=== PATIENT | female | born 1950 | race Caucasian/White ===

== ENCOUNTER → 2018-02-02 08:43 | Outpatient (CLI) | payer MEDICARE, OTHER, SELFPAY ==
[2018-02-02 10:45] LABS: Alanine Aminotransferase 33 IU/L (9-52); Albumin 4.2 g/dL (3.5-5.0); Albumin Globulin Ratio 1.6 (1.0-2.8); Alkaline Phosphatase 63 U/L (38-126); Aspartate Aminotransferase 32 IU/L (14-36); BUN Creatinine Ratio 27.1 (6-22); Bilirubin Total 0.6 mg/dL (0.2-1.3); Blood Urea Nitrogen 19 mg/dL (7-17); Calcium 9.7 mg/dL (8.4-10.2); Carbon Dioxide 32 mmol/L (22-32); Chloride 101 mmol/L (98-107); Cholesterol 186 mg/dL (140-199); Estimated Glomerular Filt Rate > 60.0 mL/min (>60); Globulin 2.7 g/dL (1.7-4.1); Glucose 110 mg/dL (80-110); HDL Cholesterol 64 mg/dL (40-60); HEMOLYSIS < 15 (0-50); LDL Cholesterol Calculated 108 mg/dL (<100); Potassium 4.5 mmol/L (3.4-5.1); Sodium 141 mmol/L (137-145); Total Protein 6.9 g/dL (6.3-8.2); Triglycerides 69 mg/dL (35-150)
== END ==
PROVIDERS: PCP Family Medicine; Visit Provider Family Medicine
DX: E78.5 Hyperlipidemia, unspecified (principal); R73.01 Impaired fasting glucose
CPT/HCPCS: 36415; 80053; 80061

== ENCOUNTER → 2018-04-29 11:55 | Outpatient (CLI) | payer MEDICARE, OTHER, SELFPAY ==
--- NOTE | 2018-04-29 | DI.MG.S_ITS ---
BILATERAL DIGITAL SCREENING MAMMOGRAM 3D/2D WITH CAD: 04/29/2018 CLINICAL: Routine screening. Family history of breast cancer. Comparison is made to exams dated: 04/24/2017 mammogram, 04/16/2016 mammogram, and 05/11/2014 mammogram - [facility]. The tissue of both breasts is predominantly fatty. Current study was also evaluated with a Computer Aided Detection (CAD) system. There is a focal asymmetry in the right breast at 11 o'clock middle depth. No other significant masses, calcifications, or other findings are seen in either breast. IMPRESSION: INCOMPLETE: NEEDS ADDITIONAL IMAGING EVALUATION The focal asymmetry in the right breast is indeterminate. Additional views with possible ultrasound are recommended. This exam was interpreted at Station ID: [id number]. NOTE: For mammograms, a report in lay terms will be sent to the patient. Approximately 15% of breast malignancies will not be visualized mammographically. In the management of a palpable breast mass, a negative mammogram must not discourage biopsy of a clinically suspicious lesion. Electronically Signed By: Kenyatta boyce/carmelina:04/29/2018 12:49:14 letter sent: Additional Imaging Needed ACR BI-RADS Category 0: Incomplete 3340F
== END ==
PROVIDERS: Family Provider Family Medicine; PCP Family Medicine; Visit Provider Family Medicine
DX: Z12.31 Encounter for screening mammogram for malignant neoplasm of breast (principal); Z80.3 Family history of malignant neoplasm of breast
CPT/HCPCS: 77063; 77067

== ENCOUNTER → 2018-05-25 13:15 | Outpatient (CLI) | payer MEDICARE, OTHER, SELFPAY ==
--- NOTE | 2018-05-25 13:17 | DI.MG.S_ITS ---
UNILATERAL RIGHT DIGITAL DIAGNOSTIC MAMMOGRAM 3D/2D WITH ADDITIONAL VIEWS: 05/25/2018 CLINICAL: Additional evaluation requested from prior study. Comparison is made to exams dated: 04/29/2018 mammogram, 04/24/2017 mammogram, 04/16/2016 mammogram, 05/11/2014 mammogram, 05/05/2013 mammogram, and 04/29/2012 mammogram - [facility]. There are scattered fibroglandular elements in right breast. There is an oval low density asymmetry with an indistinct margin in the right breast at 11 o'clock middle depth. This is less prominent. No other significant masses or calcifications are seen in the breast. IMPRESSION: INCOMPLETE: NEEDS ADDITIONAL IMAGING EVALUATION The oval low density asymmetry in the right breast is indeterminate. An ultrasound is recommended. This exam was interpreted at Station ID: [id number]. NOTE: For mammograms, a report in lay terms will be sent to the patient. Approximately 15% of breast malignancies will not be visualized mammographically. In the management of a palpable breast mass, a negative mammogram must not discourage biopsy of a clinically suspicious lesion. Electronically Signed By: Rodolfo helms/carmelina:05/25/2018 16:07:38 letter sent: Need Ultrasound ACR BI-RADS Category 0: Incomplete 3340F
== END ==
PROVIDERS: PCP Family Medicine; Visit Provider Family Medicine
DX: R92.8 Other abnormal and inconclusive findings on diagnostic imaging of breast (principal); N64.89 Other specified disorders of breast
CPT/HCPCS: 77065; G0279

== ENCOUNTER → 2018-05-26 14:37 | Outpatient (CLI) | payer MEDICARE, OTHER, SELFPAY ==
--- NOTE | 2018-05-26 14:39 | DI.US.S_ITS ---
ULTRASOUND OF RIGHT BREAST: 05/26/2018 CLINICAL: Patient returns for additional imaging over a suspected mass in the right breast. Comparison is made to exams dated: 05/25/2018 mammogram, 04/29/2018 mammogram, and 04/24/2017 mammogram - [facility]. Color flow and real-time ultrasound of the right breast were performed on the areas of interest. House scale images of the real-time examination were reviewed. There is 0.4 cm x 0.2 cm x 0.4 cm irregular cyst in the right breast at 10 o'clock middle depth. This irregular cyst is of mixed echogenicity. This correlates with mammography findings. IMPRESSION: PROBABLY BENIGN The 0.4 cm x 0.2 cm x 0.4 cm irregular cyst in the right breast is consistent with a complicated cyst and is probably benign. A follow-up mammogram and an ultrasound in 6 months is recommended to demonstrate stability. This exam was interpreted at Station ID: [id number]. Electronically Signed By: Kenyatta boyce/:05/26/2018 16:23:34 letter sent: Followup Recommended Ultrasound BI-RADS: 3 Probably benign
== END ==
PROVIDERS: PCP Family Medicine; Visit Provider Family Medicine
DX: R92.8 Other abnormal and inconclusive findings on diagnostic imaging of breast (principal); N60.01 Solitary cyst of right breast
CPT/HCPCS: 76642

== ENCOUNTER → 2018-11-24 12:41 | Outpatient (CLI) | payer MEDICARE, OTHER, SELFPAY ==
--- NOTE | 2018-11-24 12:45 | DI.US.S_ITS ---
LIMITED ULTRASOUND OF RIGHT BREAST: 11/24/2018 CLINICAL: Patient returns for a 6 month follow up of the right breast. Comparison is made to exams dated: 11/24/2018 mammogram, 05/26/2018 ultrasound, 05/25/2018 mammogram, 04/29/2018 mammogram, and 04/24/2017 mammogram - [facility]. Real-time and Doppler ultrasound of the right breast 10-11 o'clock region were performed. House scale images of the real-time examination were reviewed. There is redemonstration of a 0.4 x 0.3 x 0.2 cm oval mixed echogenic cyst wtih indistinct margins (previously described as irregular and measuring 0.4 x 0.4 x 0.2 cm on comparison ultrasound of 05/26/2018) located in the right breast at 10:00 position 8 cm from the nipple, with internal echoes and no vascularity on Doppler ultrasound. IMPRESSION: PROBABLY BENIGN Stable 0.4 cm probable complicated cyst in the right breast at 10:00 position 8 cm from the nipple. A follow-up ultrasound in 6 months is recommended to demonstrate stability. Patient will also be due for bilateral mammography at that time. The patient is advised to monitor her breasts and to return sooner for re-evaluation should she feel anything grow or change. This exam was interpreted at Station ID: [id number]. Electronically Signed By: Mayur Berger M.D. ecl/:11/24/2018 13:40:51 letter sent: Followup Recommended Ultrasound BI-RADS: 3 Probably benign
--- NOTE | 2018-11-24 12:45 | DI.MG.S_ITS ---
UNILATERAL RIGHT DIGITAL DIAGNOSTIC MAMMOGRAM 3D/2D SHORT-TERM FOLLOW-UP: 11/24/2018 CLINICAL: Patient returns for a 6 month follow up of the right breast. Comparison is made to exams dated: 05/25/2018 mammogram, 04/29/2018 mammogram, and 04/24/2017 mammogram - [facility]. There are scattered fibroglandular elements in right breast. Previously described focal asymmetry in the upper outer right breast near 10:00-11:00 position middle depth is stable in appearance to prior comparison exams. IMPRESSION: INCOMPLETE: NEEDS ADDITIONAL IMAGING EVALUATION Previously described focal asymmetry in the upper outer right breast near 10:00-11:00 position middle depth is stable in appearance to prior comparison exams. A targeted ultrasound is recommended for further evaluation, and will be performed immediately following this exam. This exam was interpreted at Station ID: [id number]. NOTE: For mammograms, a report in lay terms will be sent to the patient. Approximately 15% of breast malignancies will not be visualized mammographically. In the management of a palpable breast mass, a negative mammogram must not discourage biopsy of a clinically suspicious lesion. Electronically Signed By: Mayur Berger M.D. ecl/:11/24/2018 13:32:30 ACR BI-RADS Category 0: Incomplete 3340F
== END ==
PROVIDERS: PCP Family Medicine; Visit Provider Family Medicine
DX: R92.8 Other abnormal and inconclusive findings on diagnostic imaging of breast (principal); N60.01 Solitary cyst of right breast
CPT/HCPCS: 76642; 77065; G0279

== ENCOUNTER → 2019-05-05 07:53 | Outpatient (CLI) | payer MEDICARE, OTHER, SELFPAY ==
[2019-05-05 08:51] LABS: Add Manual Diff / Slide Review NO; Basophils Absolute Auto 0 /uL (0-100); Basophils Percent Auto 0.5 % (0-2); Eosinophils Absolute Auto 100 /uL (0-450); Eosinophils Percent Auto 1.9 % (2-4); Hematocrit 39.8 % (36-46); Hemoglobin 13.3 g/dL (12.0-16.0); Lymphocytes Absolute Auto 1300 /uL (1100-4500); Lymphocytes Percent Auto 27.4 % (25-40); Mean Corpuscular HGB Conc 33.5 % (30-36); Mean Corpuscular Hemoglobin 29.5 PG (26-34); Mean Corpuscular Volume 88.3 fL (80-100); Monocytes Absolute Auto 400 /uL (0-900); Monocytes Percent Auto 8.2 % (3-14); Neutrophils Absolute Auto 2900 /uL (1500-7000); Platelet Count 218 X10^3/uL (150-400); Red Blood Cell Count 4.51 X10^6/uL (4.0-5.2); White Blood Cell Count 4.7 X10^3/uL (4.5-11.0)
[2019-05-05 09:14] LABS: Alanine Aminotransferase 19 IU/L (<35); Albumin 4.2 g/dL (3.5-5.0); Albumin Globulin Ratio 1.5 (1.0-2.8); Alkaline Phosphatase 72 U/L (38-126); Aspartate Aminotransferase 29 IU/L (14-36); BUN Creatinine Ratio 21.7 (6-22); Bilirubin Total 0.7 mg/dL (0.2-1.3); Blood Urea Nitrogen 13 mg/dL (7-17); Calcium 9.5 mg/dL (8.4-10.2); Carbon Dioxide 30 mmol/L (22-32); Chloride 104 mmol/L (98-107); Estimated Glomerular Filt Rate > 60.0 mL/min (>60); Globulin 2.8 g/dL (1.7-4.1); Glucose 123 mg/dL (80-110); HEMOLYSIS < 15 (0-50); Potassium 3.9 mmol/L (3.4-5.1); Sodium 140 mmol/L (137-145)
[2019-05-05 09:32] LABS: Free T3, Triiodothyronine Free 3.99 pg/mL (2.77-5.27); Free T4, Direct Thyroxine 1.19 ng/dL (0.78-2.19)
[2019-05-05 09:45] LABS: Thyroid Stimulating Hormone 2.12 uIU/mL (0.47-4.68)
== END ==
PROVIDERS: PCP Family Medicine; Visit Provider Nurse Practitioner
DX: R53.83 Other fatigue (principal); R63.5 Abnormal weight gain
CPT/HCPCS: 36415; 80053; 84439; 84443; 84481; 85025

== ENCOUNTER → 2019-05-12 09:28 | Outpatient (CLI) | payer MEDICARE, OTHER, SELFPAY ==
[2019-05-12 11:30] LABS: Hemoglobin A1C% w Est Avg Glu 6.1 % (4.0-6.0)
[2019-05-12 12:07] LABS: Glucose 99 mg/dL (80-110)
== END ==
PROVIDERS: PCP Nurse Practitioner; Visit Provider Nurse Practitioner
DX: R73.01 Impaired fasting glucose (principal)
CPT/HCPCS: 36415; 82947; 83036

== ENCOUNTER → 2019-05-30 08:38 | Outpatient (CLI) | payer MEDICARE, OTHER, SELFPAY ==
--- NOTE | 2019-05-30 | DI.MG.S_ITS ---
BILATERAL DIGITAL DIAGNOSTIC MAMMOGRAM 3D/2D SHORT-TERM FOLLOW-UP: 05/30/2019 CLINICAL: Patient returns for 6 month follow up of right breast, due for bilateral exam. Comparison is made to exams dated: 11/24/2018 mammogram, 05/25/2018 mammogram, 04/29/2018 mammogram, 11/24/2018 ultrasound, 05/26/2018 ultrasound, and 04/24/2017 mammogram - [facility]. There are scattered fibroglandular elements in both breasts. Previously described focal asymmetry in the upper outer right breast near 10:00-11:00 position middle depth is stable in appearance to prior comparison exams. No abnormality in the right breast to correspond to the diffuse posterior pain. No significant masses, calcifications, or other findings are seen in either breast. IMPRESSION: INCOMPLETE: NEEDS ADDITIONAL IMAGING EVALUATION Previously described focal asymmetry in the upper outer right breast near 10:00-11:00 position middle depth is stable in appearance. A targeted ultrasound is recommended for further evaluation, and will be performed immediately following this exam. This exam was interpreted at Station ID: [id number]. NOTE: For mammograms, a report in lay terms will be sent to the patient. Approximately 15% of breast malignancies will not be visualized mammographically. In the management of a palpable breast mass, a negative mammogram must not discourage biopsy of a clinically suspicious lesion. Electronically Signed By: Hiren Kahn M.D. [facility] [place]/:05/30/2019 09:27:35 ACR BI-RADS Category 0: Incomplete 3340F
--- NOTE | 2019-05-30 08:40 | DI.US.S_ITS ---
LIMITED ULTRASOUND OF RIGHT BREAST: 05/30/2019 CLINICAL: 6 month follow-up of cysts. Comparison is made to exams dated: 05/30/2019 mammogram, 11/24/2018 ultrasound, 11/24/2018 mammogram, 05/26/2018 ultrasound, 05/25/2018 mammogram, and 04/29/2018 mammogram - [facility]. Color flow and real-time ultrasound of the right breast 9-10 o'clock region were performed. House scale images of the real-time examination were reviewed. There is a stable 0.3 cm x 0.2 cm x 0.3 cm (previously 0.4 x 0.3 x 0.2 cm) oval cyst with a septated internal wall in the right breast at 10 o'clock middle depth 8 cm from the nipple. This oval cyst is hypoechoic with a well-defined boundary. Color flow imaging demonstrates that there is no vascularity present. This is stable since 05/26/2018. No abnormality in the region of diffuse pain in the right lateral breast. IMPRESSION: PROBABLY BENIGN Stable 0.3 cm cyst in the right breast is consistent with a complicated cyst and is probably benign. A follow-up mammogram and an ultrasound in 6 months is recommended to demonstrate long-term stability. No abnormality in the region of diffuse pain in the lateral right breast. Exam findings were conveyed to the patient by the java spring developer. This exam was interpreted at Station ID: [id number]. Electronically Signed By: Hiren Kahn M.D. slc/:05/30/2019 10:23:38 letter sent: Followup Recommended Ultrasound BI-RADS: 3 Probably benign
== END ==
PROVIDERS: PCP Nurse Practitioner; Visit Provider Family Medicine
DX: R92.8 Other abnormal and inconclusive findings on diagnostic imaging of breast (principal); N60.01 Solitary cyst of right breast; N64.4 Mastodynia
CPT/HCPCS: 76642; 77066; G0279

== ENCOUNTER → 2019-08-03 10:45 | Outpatient (CLI) | payer MEDICARE, OTHER, SELFPAY ==
--- NOTE | 2019-08-04 12:05 | DIET.PN ---
Nutrition Initial Assessment:? ASSESS:???Mrs. Monreal is a 69 yof referred for pre-DM. She admits to having a sweet tooth, and has not followed any particular dietary habits until her recent diagnosis. She has started making more intentional dietary choices and is not doing as much baking as she has in the past. She currently does not get much activity, but does a lot of walking and hiking in the summer months. She does not currently monitor her BG. ? LABS: Per pt report:? A1c: 6.1 ? MEDS:?? statin ? DIET: Per 24-hour recall:? B: vanilla yogurt w/ granola or an egg L: apple w/ pb or cheese D: pro, br. Rice/potato, veg/salad ? Weight: 188 lb Ht:? 67 in BMI: 29.4 ? Exercise:? none at this time. NUTRITION DX 1. Altered Nutrition related labs related to impaired glucose metabolism, lack of previous exposure to accurate nutrition information as evidenced by pt report, dx of pre-diabetes, previous diet high in refined carbohydrates, lack of physical activity.? INTERVENTION(s): 1. Discussed pathophysiology of diabetes/hyperglycemia and impact of nutrition/diet on blood sugar control.? 2. Discussed the effect of carbohydrates/protein/fat on blood sugar control.? Stressed importance of consistent carbohydrate intake at each meal and provided instructions for recommended servings/portions of carbohydrates/protein per meal. Provided pt with educational material. 3. Reviewed carbohydrate counting and measuring carbohydrate content via servings sizes and reading nutrition labels.? Provided handouts.?? 4. Discussed the difference between simple versus complex carbohydrates and the effect of fiber on blood sugar control.? Discussed various methods to increase fiber content in diet. 5. Stressed importance of meal timing and not going >4-5 hours between meals. Encouraged adding protein to snacks to support glucose control and prevent hunger. Discussed various snack options. 6. Discussed importance of food preparation to encourage healthy eating, portion control, and prevent hunger/over snacking. 7. Discussed healthy weight loss goals of 1-2lbs per week through diet and exercise.? Pt agreeable to keeping a daily food record including portions. MONITOR/EVALUATE: Anticipate excellent compliance.?
== END ==
PROVIDERS: PCP Nurse Practitioner; Referring Provider Nurse Practitioner; Visit Provider Nurse Practitioner
DX: R73.03 Prediabetes (principal); Z68.29 Body mass index [BMI] 29.0-29.9, adult; Z71.3 Dietary counseling and surveillance
CPT/HCPCS: 97802

== ENCOUNTER → 2019-08-18 09:59 | Outpatient (CLI) | payer MEDICARE, OTHER, SELFPAY ==
--- NOTE | 2019-08-18 10:02 | DI.US.S_ITS ---
LIMITED ULTRASOUND OF RIGHT BREAST AND AXILLA: 08/18/2019 CLINICAL: Focal right breast pain. Comparison is made to exams dated: 08/18/2019 mammogram, 05/30/2019 ultrasound, 05/30/2019 mammogram, 11/24/2018 ultrasound, and 05/25/2018 mammogram - [facility]. Real-time ultrasound of the right breast 9 o'clock, and axilla regions was performed. House scale images of the real-time examination were reviewed. No significant abnormalities were seen sonographically in the right breast or the right axilla in the regions of focal pain. IMPRESSION: NEGATIVE There is no sonographic evidence of malignancy in the right breast in the regions of concern. Patient was advised to monitor the area for significant change. Results were conveyed to the patient by the Food Service Aide. However, follow-up mammogram and ultrasound of the previously recommended to evaluate the right breast complicated cyst and is due in October 2019. This exam was interpreted at Station ID: [id number]. Electronically Signed By: Hiren Kahn M.D. slc/:08/18/2019 12:35:02 letter sent: Normal Exam Ultrasound BI-RADS: 1 Negative
--- NOTE | 2019-08-18 10:02 | DI.US.S_ITS ---
LIMITED ULTRASOUND OF LEFT BREAST: 08/18/2019 CLINICAL: Palpable left breast lump. Comparison is made to exams dated: 08/18/2019 mammogram, 05/30/2019 mammogram, 04/29/2018 mammogram, and 04/24/2017 mammogram - [facility]. Real-time ultrasound of the left breast 5 o'clock and 7 o'clock regions was performed. House scale images of the real-time examination were reviewed. No significant abnormalities were seen sonographically in the left breast. IMPRESSION: NEGATIVE There is no sonographic evidence of malignancy in the left breast. Return to annual mammogram screening schedule is recommended. Patient was advised to monitor the area for significant change. Results and recommendations were conveyed to the patient by the Operations And Maintenance Technician. This exam was interpreted at Station ID: [id number]. Electronically Signed By: Hiren Kahn M.D. slc/:08/18/2019 11:23:04 letter sent: Normal Exam Ultrasound BI-RADS: 1 Negative
--- NOTE | 2019-08-18 10:02 | DI.MG.S_ITS ---
BILATERAL DIGITAL DIAGNOSTIC MAMMOGRAM 3D/2D: 08/18/2019 CLINICAL: Right breast pain and left breast lump. Comparison is made to exams dated: 05/30/2019 mammogram, 11/24/2018 mammogram, 05/25/2018 mammogram, 04/29/2018 mammogram, 05/30/2019 ultrasound, and 04/24/2017 mammogram - [facility]. There are scattered fibroglandular elements in both breasts. No significant masses, calcifications, or other findings are seen in either breast. IMPRESSION: INCOMPLETE: NEEDS ADDITIONAL IMAGING EVALUATION No significant masses, calcifications, or other findings are seen in either breast. Targeted ultrasound of the areas of focal pain in the right breast and palpable abnormality in the left breast is recommended and will immediately follow. This exam was interpreted at Station ID: [id number]. NOTE: For mammograms, a report in lay terms will be sent to the patient. Approximately 15% of breast malignancies will not be visualized mammographically. In the management of a palpable breast mass, a negative mammogram must not discourage biopsy of a clinically suspicious lesion. Electronically Signed By: Hiren Kahn M.D. [facility] [place]/:08/18/2019 12:29:16 ACR BI-RADS Category 0: Incomplete 3340F
== END ==
PROVIDERS: PCP Nurse Practitioner; Referring Provider Nurse Practitioner; Visit Provider Nurse Practitioner
DX: R92.8 Other abnormal and inconclusive findings on diagnostic imaging of breast (principal); N64.4 Mastodynia; N63.23 Unspecified lump in the left breast, lower outer quadrant; N63.15 Unspecified lump in the right breast, overlapping quadrants; N60.01 Solitary cyst of right breast
CPT/HCPCS: 76642; 77066; G0279

== ENCOUNTER → 2019-11-25 08:47 | Outpatient (CLI) | payer MEDICARE, OTHER, SELFPAY ==
--- NOTE | 2019-11-25 08:49 | DI.US.S_ITS ---
LIMITED ULTRASOUND OF RIGHT BREAST: 11/25/2019 CLINICAL: 6 month follow-up of cysts. Comparison is made to exams dated: 08/18/2019 ultrasound, 08/18/2019 mammogram, 05/30/2019 ultrasound, 11/24/2018 ultrasound, 05/26/2018 ultrasound, and 05/25/2018 mammogram - [facility]. Color flow and real-time ultrasound of the right breast 10 o'clock region were performed. House scale images of the real-time examination were reviewed. There is a stable 0.4 cm x 0.4 cm x 0.2 cm oval cyst with a septated internal wall in the right breast at 10 o'clock posterior depth 8 cm from the nipple. This oval cyst is hypoechoic. This correlates with prior ultrasound findings. Color flow imaging demonstrates that there is no vascularity present. This measured 0.4 x 0.4 x 0.2 cm on 05/26/2018. IMPRESSION: PROBABLY BENIGN The stable 0.4 cm oval cyst in the right breast is consistent with a complicated cyst and is probably benign. A follow-up mammogram and an ultrasound in 6 months is recommended to demonstrate stability. Patient will also be due for left breast screening mammogram at that time. Exam findings were conveyed to the patient by the Deaf/Hard Of Hearing Specialist. This exam was interpreted at Station ID: [id number]. Electronically Signed By: Hiren Kahn M.D. slc/:11/25/2019 09:55:50 letter sent: Followup Recommended Ultrasound BI-RADS: 3 Probably benign
--- NOTE | 2019-11-25 08:49 | DI.MG.S_ITS ---
UNILATERAL RIGHT DIGITAL DIAGNOSTIC MAMMOGRAM 3D/2D SHORT-TERM FOLLOW-UP: 11/25/2019 CLINICAL: Short term follow up. Comparison is made to exams dated: 08/18/2019 ultrasound, 05/30/2019 ultrasound, 05/30/2019 mammogram, 11/24/2018 mammogram, 05/25/2018 mammogram, and 04/29/2018 mammogram - [facility]. There are scattered fibroglandular elements in right breast. No significant masses, calcifications, or other findings are seen in the breast. IMPRESSION: INCOMPLETE: NEEDS ADDITIONAL IMAGING EVALUATION No significant masses, calcifications, or other findings are seen in the breast. Targeted ultrasound of the right breast is recommended to follow up the previously seen small complicated cyst on prior ultrasound and will immediately follow. This exam was interpreted at Station ID: [id number]. NOTE: For mammograms, a report in lay terms will be sent to the patient. Approximately 15% of breast malignancies will not be visualized mammographically. In the management of a palpable breast mass, a negative mammogram must not discourage biopsy of a clinically suspicious lesion. Electronically Signed By: Hiren Kahn M.D. [facility] [place]/:11/25/2019 09:49:56 ACR BI-RADS Category 0: Incomplete 3340F
== END ==
PROVIDERS: PCP Nurse Practitioner; Referring Provider Nurse Practitioner; Visit Provider Nurse Practitioner
DX: R92.8 Other abnormal and inconclusive findings on diagnostic imaging of breast (principal); N64.4 Mastodynia; N60.01 Solitary cyst of right breast
CPT/HCPCS: 76642; 77065; G0279

== ENCOUNTER → 2020-04-20 15:13 | Outpatient (CLI) | payer MEDICARE, OTHER, SELFPAY ==
--- NOTE | 2020-04-20 15:18 | DI.RAD.S_ITS ---
PROCEDURE: XR RIBS BI MIN 4V W CXR1V INDICATIONS: Evaluate for rib fracture TECHNIQUE: 4 views of the bilateral ribs were acquired, along with a single view chest. COMPARISON: None. FINDINGS: Surgical changes and devices: None. Bones and chest wall: No fractures or dislocations. No suspicious bony lesions. Overlying soft tissues appear unremarkable. Lungs and pleura: No pleural effusions or pneumothorax. Lungs appear clear. Mediastinum: Mediastinal contours appear normal. Heart size is normal. IMPRESSION: No fracture or pneumothorax seen bilaterally. Please note that the accurate detection of nondisplaced rib fractures may be very limited initially, before callus formation, and depending on the clinical status follow-up by delayed plain films may be warranted. No osteolytic or blastic change is identified. Dictated by: Roberto Cody M.D. on 04/20/2020 at 16:27 Approved by: Roberto Cody M.D. on 04/20/2020 at 16:29
== END ==
PROVIDERS: PCP Nurse Practitioner; Referring Provider Family Medicine; Visit Provider Family Medicine
DX: S29.011A Strain of muscle and tendon of front wall of thorax, initial encounter; X58.XXXA Exposure to other specified factors, initial encounter
CPT/HCPCS: 71111

== ENCOUNTER → 2020-05-01 08:38 | Outpatient (CLI) | payer MEDICARE, OTHER, SELFPAY ==
--- NOTE | 2020-05-01 08:41 | DI.MG.S_ITS ---
BILATERAL DIGITAL DIAGNOSTIC MAMMOGRAM 3D/2D: 05/01/2020 CLINICAL: Patient returns for a 6 month follow up of the right breast, due for bilateral exam. Comparison is made to exams dated: 11/25/2019 mammogram, 08/18/2019 mammogram, and 05/30/2019 mammogram - [facility]. There are scattered fibroglandular elements in both breasts. There is an oval asymmetry with an indistinct margin in the right breast at 10 o'clock middle depth. This is less prominent compared to prior studies. No other significant masses, calcifications, or other findings are seen in either breast. IMPRESSION: INCOMPLETE: NEEDS ADDITIONAL IMAGING EVALUATION The oval asymmetry in the right breast is now less prominent. An ultrasound is recommended for follow up. Left breast mammogram is stable. Ultrasound was performed following this exam. This exam was interpreted at Station ID: [id number]. NOTE: For mammograms, a report in lay terms will be sent to the patient. Approximately 15% of breast malignancies will not be visualized mammographically. In the management of a palpable breast mass, a negative mammogram must not discourage biopsy of a clinically suspicious lesion. Electronically Signed By: Cindy boyle/:05/01/2020 09:42:53 ACR BI-RADS Category 0: Incomplete [id number]
--- NOTE | 2020-05-01 08:41 | DI.US.S_ITS ---
ULTRASOUND OF RIGHT BREAST: 05/01/2020 CLINICAL: 6 month follow-up of cyst. Comparison is made to exams dated: 05/01/2020 mammogram, 11/25/2019 ultrasound, 11/25/2019 mammogram, 08/18/2019 ultrasound, 08/18/2019 mammogram, and 05/30/2019 [facility]. Color flow and real-time ultrasound of the right breast were performed. House scale images of the real-time examination were reviewed. There is a stable benign 0.4 cm x 0.4 cm x 0.2 cm oval cyst with a septated internal wall in the right breast at 10 o'clock posterior depth 8 cm from the nipple. This correlates with mammography findings. Color flow imaging demonstrates that there is no vascularity present. IMPRESSION: BENIGN There is no sonographic evidence of malignancy. The 0.4 cm oval cyst in the right breast has been stable for over 2 years, consistent with a complicated cyst and is benign. Return to annual mammogram screening schedule is recommended. Findings and recommendations were conveyed to the patient at time of exam. This exam was interpreted at Station ID: [id number]. Electronically Signed By: Cindy boyle/:05/01/2020 10:03:39 letter sent: Normal Exam Ultrasound BI-RADS: 2 Benign
== END ==
PROVIDERS: PCP Nurse Practitioner; Referring Provider Nurse Practitioner; Visit Provider Nurse Practitioner
DX: R92.8 Other abnormal and inconclusive findings on diagnostic imaging of breast (principal); N60.01 Solitary cyst of right breast
CPT/HCPCS: 76642; 77066; G0279

== ENCOUNTER → 2020-07-23 07:08 | Outpatient (CLI) | payer MEDICARE, OTHER, SELFPAY ==
[2020-07-23 08:56] LABS: Hemoglobin A1C% w Est Avg Glu 6.4 % (4.0-6.0)
[2020-07-23 09:13] LABS: Alanine Aminotransferase 19 IU/L (<35); Albumin 3.8 g/dL (3.5-5.0); Albumin Globulin Ratio 1.5 (1.0-2.8); Alkaline Phosphatase 73 U/L (38-126); Aspartate Aminotransferase 28 IU/L (14-36); BUN Creatinine Ratio 29.9 (6-22); Bilirubin Total 0.3 mg/dL (0.2-1.3); Blood Urea Nitrogen 20 mg/dL (7-17); Calcium 9.3 mg/dL (8.4-10.2); Carbon Dioxide 33 mmol/L (22-32); Chloride 104 mmol/L (98-107); Cholesterol 180 mg/dL (140-199); Estimated Glomerular Filt Rate > 60.0 mL/min (>60); Globulin 2.6 g/dL (1.7-4.1); Glucose 123 mg/dL (80-110); HDL Cholesterol 68 mg/dL (40-60); HEMOLYSIS < 15 (0-50); LDL Cholesterol Calculated 96 mg/dL (<100); Potassium 4.9 mmol/L (3.4-5.1); Sodium 137 mmol/L (137-145); Total Protein 6.4 g/dL (6.3-8.2); Triglycerides 82 mg/dL (35-150)
== END ==
PROVIDERS: PCP Nurse Practitioner; Referring Provider Nurse Practitioner; Visit Provider Nurse Practitioner
DX: E78.5 Hyperlipidemia, unspecified (principal); R73.01 Impaired fasting glucose; R03.0 Elevated blood-pressure reading, without diagnosis of hypertension; Z79.899 Other long term (current) drug therapy
CPT/HCPCS: 36415; 80053; 80061; 83036

== ENCOUNTER → 2020-07-24 16:53 | Outpatient (CLI) | payer MEDICARE, OTHER, SELFPAY ==
[2020-07-24 17:56] LABS: Appearance Urine UA CLEAR; Bilirubin Urine UA NEGATIVE (NEGATIVE); Color Urine UA YELLOW; Glucose Urine UA NEGATIVE (Negative); Ketones Urine UA NEGATIVE (NEGATIVE); Leukocyte Esterase Urine UA NEGATIVE (NEGATIVE); Nitrite Urine UA NEGATIVE (Negative); Occult Blood Urine UA 3+ (Negative); Protein Urine UA NEGATIVE (Negative); Urobilinogen Urine UA 0.2 E.U./dL (0.2)
[2020-07-24 18:00] LABS: Bacteria Urine None Seen
[2020-07-24 18:26] LABS: Amorphous Sediment Urine 1+; Culture Indicated Urine Cult Not Indicated; Mucus Urine 1+ (Negative); RBC Urine 5-10/HPF (0-5/HPF); Squamous Epithelial Cell Urine 0-1 /HPF (0-5/HPF); WBC Urine 0-1/HPF (0-5/HPF)
== END ==
PROVIDERS: PCP Nurse Practitioner; Referring Provider Registered Nurse; Visit Provider Nurse Practitioner
DX: R10.9 Unspecified abdominal pain (principal)
CPT/HCPCS: 81003; 81015

== ENCOUNTER → 2020-07-26 11:01 | Outpatient (CLI) | payer MEDICARE, OTHER, SELFPAY ==
[2020-07-26 13:33] LABS: Add Manual Diff / Slide Review NO; Basophils Absolute Auto 0 /uL (0-100); Basophils Percent Auto 0.6 % (0-2); Eosinophils Absolute Auto 100 /uL (0-450); Eosinophils Percent Auto 1.3 % (2-4); Hematocrit 42.1 % (36-46); Hemoglobin 13.8 g/dL (12.0-16.0); Lymphocytes Absolute Auto 1200 /uL (1100-4500); Lymphocytes Percent Auto 23.1 % (25-40); Mean Corpuscular HGB Conc 32.8 % (30-36); Mean Corpuscular Hemoglobin 29.2 PG (26-34); Mean Corpuscular Volume 88.9 fL (80-100); Monocytes Absolute Auto 500 /uL (0-900); Monocytes Percent Auto 8.7 % (3-14); Neutrophils Absolute Auto 3500 /uL (1500-7000); Neutrophils Percent Auto 66.3 % (50-75); Platelet Count 217 X10^3/uL (150-400); Red Blood Cell Count 4.74 X10^6/uL (4.0-5.2); Red Cell Distribution Width 14.5 % (11.6-14.8); White Blood Cell Count 5.4 X10^3/uL (4.5-11.0)
== END ==
PROVIDERS: PCP Nurse Practitioner; Referring Provider Registered Nurse; Visit Provider Registered Nurse
DX: R10.9 Unspecified abdominal pain (principal); R31.9 Hematuria, unspecified
CPT/HCPCS: 36415; 85025

== ENCOUNTER → 2020-07-27 08:21 | Outpatient (CLI) | payer MEDICARE, OTHER, SELFPAY ==
--- NOTE | 2020-07-27 08:22 | DI.US.S_ITS ---
PROCEDURE: US ABDOMEN COMPLETE INDICATIONS: ABDOMINAL PAIN TECHNIQUE: Real-time scanning was performed of the abdominal and retroperitoneal organs, with image documentation. COMPARISON: [facility], [place], ABDOMEN COMPLETE, 11/14/2009, 10:18. [facility], [place], ABDOMEN COMPLETE, 10/10/2008, 8:05. [facility], [place], ABDOMEN COMPLETE, 02/01/2012, 10:36. FINDINGS: Liver: There is a hypoechoic nodule in the left hepatic lobe measuring 8 x 5 x 5 mm, compatible with a cyst. Liver is normal in size and homogeneous in echotexture. Gallbladder: No gallstones. No gallbladder wall thickening, pericholecystic fluid or sonographic Lopez's sign. Biliary ducts: Intrahepatic bile ducts are non-dilated. Extrahepatic bile duct caliber measures 2.1 mm. Normal is 6-7 mm or less in diameter, or 10 mm or less post-cholecystectomy. Pancreas: Pancreas is obscured by overlying bowel gas. Spleen: Spleen is normal in size and homogeneous in echotexture. Kidneys: Kidneys are normal in size and echotexture. Right kidney measures 9.4 cm long; left kidney measures 10.0 cm long. No hydronephrosis or nephrolithiasis. No solid masses. Aorta: Visualized aorta is normal in caliber at less than 3 cm. Iliacs: Proximal common iliac arteries are normal in caliber at less than 2.5 cm. IVC: Intrahepatic inferior vena cava is patent. Miscellaneous: No free abdominal fluid. IMPRESSION: 1. No ultrasound findings to explain abdominal pain. 2. A small cyst in the left hepatic lobe. 3. Pancreas obscured by overlying bowel gas. Dictated by: Amarilis Gamble M.D. on 07/27/2020 at 15:35 Approved by: Amarilis Gamble M.D. on 07/27/2020 at 15:40
== END ==
PROVIDERS: PCP Nurse Practitioner; Referring Provider Nurse Practitioner; Visit Provider Registered Nurse
DX: R10.9 Unspecified abdominal pain (principal); K76.89 Other specified diseases of liver
CPT/HCPCS: 76700

== ENCOUNTER → 2020-08-29 09:20 | Outpatient (CLI) | payer MEDICARE, OTHER, SELFPAY ==
[2020-08-29 10:24] LABS: COVID19 -Nasal RAPID Negative (Negative)
== END ==
PROVIDERS: PCP Nurse Practitioner; Visit Provider Surgery
DX: Z20.822 Contact with and (suspected) exposure to COVID-19 (principal)
CPT/HCPCS: 87635; C9803

== ENCOUNTER 2020-08-30 06:42 | Day surgery (SDC) | payer MEDICARE, OTHER, SELFPAY ==
[2020-08-30 07:14] VITALS: BP 123/80; PULSE 78; RESP 16; TEMP 37.1; O2SAT 99; BMI 27.6
--- NOTE | 2020-08-30 07:32 | PM.HP.1 ---
History of Present Illness History of Present Illness Date Patient Seen: 08/30/20 Time Patient Seen: 07:32 Chief complaint: SDC Narrative: This is a 70-year-old woman with history of colonoscopy 10 years ago, which was reportedly normal per the patient. She denies any melena, hematochezia, unexplained abdominal pain unexplained weight loss. She denies any personal or family history of colon polyps or colon cancers. She has hypertension, atrial fibrillation, a pacemaker defibrillator, asthma sleep apnea, arthritis, chronic constipation, prediabetes. ROS: Thirteen system review is otherwise negative other than as mentioned below and in HPI. PE: GENERAL: Well groomed and cooperative. Appears stated age. Answers questions promptly and appropriately. Vital signs noted. HENT: Normocephalic, atraumatic. Hearing intact. EYES: Conjunctiva pink, sclera white, no periorbital swelling. CARDIOVASCULAR: Regular rate. No pedal edema. RESPIRATORY: Non-tachypneic, breathing comfortably on room air. GASTROINTESTINAL: Abdomen soft and non-distended GENITALURINARY: No flank tenderness. MUSCULOSKELETAL: Equal tone and mass bilaterally. SKIN: Warm, dry, soft, appropriate color for ethnicity. No other lesions, rashes, or wounds. NEURO: Alert and Oriented X 3. No gross sensory deficits, or cognitive issues. PSYCH: Appropriate affect and mood. 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 Asthma Atrial fibrillation (2010) Blood in urine Bowel habit changes Breast lump in female Eczema (1955) Elevated blood pressure reading without diagnosis of hypertension (11/09/13) Foot pain (2013) Fractures Hayfever Hematuria Herpes Herpes zoster with unspecified complication (11/16/12) Hyperlipidemia (11/09/13) Hypertension Impaired fasting glucose (12/21/13) Intercostal muscle strain Lesion of labia (02/01/15) Loss of hair (08/31/13) Obesity (BMI 30.0-34.9) Osteoarthritis (2001) Positive antinuclear antibody (04/17/14) Postmenopausal status (11/09/13) Prediabetes Presence of cardiac pacemaker (2010) Scoliosis (2007) SI (sacroiliac) joint dysfunction Skin cancer (2014) Tendonitis of elbow, right Traumatic compression fracture of L1 lumbar vertebra Traumatic compression fracture of T12 thoracic vertebra Vertigo (~1989) Surgical History Anesthesia complication Bone spur of right foot (~09/2014) History of knee replacement (2004) History of knee replacement (2007) History of permanent cardiac pacemaker placement (2010) History of tonsillectomy (1951) Status post dilation and curettage (1970) Status post kyphoplasty (02/2008) Family & Social History Family History Brother Diabetes mellitus Cancer Prostate cancer Brother Age: 73 Overweight Prostate cancer Hypertension High cholesterol Father Multiple myeloma Heart disease Renal failure Grandfather Heart disease Heart attack Mother Diabetes mellitus Hypertension Stroke Grandmother Cancer Grandmother No problems noted. Grandfather Flu Family/Other Diabetes mellitus Social History: household members spouse Tobacco & Substance use: Smoking Status Never smoker alcohol intake frequency holiday/special occasion Substance Use Type does not use Meds Home Medications and Allergies Home Medications Medication Instructions Recorded Confirmed Type Fish Oil (#FISH OIL) 2,000 mg PO DAILY #0 02/01/12 08/30/20 History calcium carbonate 600 mg calcium 1,200 mg PO DAILY tab 11/16/17 08/30/20 History (1,500 mg) tablet coenzyme [id number] E 100 mg-100 1 cap PO DAILY cap 11/16/17 08/30/20 History unit capsule cinnamon bark 500 mg capsule 1,200 mg PO DAILY 04/20/20 08/30/20 History flaxseed oil 1,000 mg capsule 720 mg PO DAILY 04/20/20 08/30/20 History simvastatin 10 mg tablet 10 mg PO BEDTIME #90 tab 06/19/20 08/30/20 Rx ibuprofen 200 mg tablet 400 mg PO BID PRN tab 07/26/20 08/30/20 History brimonidine 0.2 % eye drops 1 drp EYE-BOTH BID ml 08/06/20 08/30/20 History sodium,potassium,mag sulfates 17.5 177 ml PO DAILY #354 ml 08/06/20 08/30/20 Rx gram-3.13 gram-1.6 gram oral soln lisinopril 5 mg tablet 5 mg PO DAILY #30 tab 08/28/20 08/30/20 Rx Allergies Allergy/AdvReac Type Severity Reaction Status Date / Time adhesive tape [ADHESIVE TAPE] Allergy Mild Verified 08/28/20 09:00 hydrocodone [HYDROCODONE] Allergy Mild ITCHING Verified 08/28/20 09:00 atenolol AdvReac MAKES Verified 08/30/20 07:16 HEART STOP Exam Vital Signs (past 8 hours): - 08/30/20 07:14 Temperature 98.7 F Pulse Rate 78 Respiratory Rate 16 Blood Pressure 123/80 Pulse Oximetry 99 Oxygen Delivery Method Room Air Assessment & Plan Assessment and plan (1) Hypertension: Qualifiers: Hypertension type: essential hypertension Qualified Code(s): I10 - Essential (primary) hypertension Status: Chronic (2) Prediabetes: Status: Chronic (3) At average risk for colon cancer: Status: Acute (4) Atrial fibrillation: Status: Chronic Assessment & Plan narrative: Risks and benefits of screening colonoscopy and possible polypectomy were discussed with the patient including risk of bleeding, perforation, need for additional procedures, risks of anesthesia. The patient desires to proceed with the colonoscopy procedure. COVID-19 COVID-19 status: Negative Result date/Date tested (Pos, Neg/Pending): 08/29/20 Time Spent With Patient Time with patient: 15-24 minutes Quality VTE Deep Vein Thrombosis/Pulmonary Embolism Present on Admission: No
--- NOTE | 2020-08-30 07:44 | P.OP.ENDO_ITS ---
Operative Date/Time/Diagnoses Date of procedure: 08/30/20 Time of procedure: 07:51 Pre-op diagnosis: Average risk for colon cancer, due for screening colonoscopy Post-op diagnosis: other (Diverticulosis, tortuous colon, no polyps found) Procedure & Clinicians Study performed: Colonoscopy Procedural sedation performed by the endoscopist Same procedure as scheduled: Yes Indications: Average risk colon cancers, 10 years since last colonoscopy Surgeon: Carole Sigala Procedure Notes SCOAP/Timeout: Performed Procedure in detail: The patient was brought to the room and placed in left lateral decubitus position with all bony prominences padded. A time-out was performed and then the patient was given procedural sedation starting with 2 mg of Versed and 100 mcg of fentanyl. A total of 5 mg of Versed and 200 micro g of fentanyl were given for the entire procedure. Vitals were monitored throughout the procedure and remained stable. Once adequately sedated, the procedure was begun. A rectal exam was performed revealing no abnormalities. The colonoscope was then introduced to the rectum and advanced to the cecum in the usual fashion. The cecum was identified by the appendiceal orifice, the mucosal tri- fold, and the ileocecal valve. The scope was then retracted while rotating side to side and examining each mucosal fold. The colon was quite tortuous, and moderate diverticulosis was found in the descending and sigmoid colon without evidence of active diverticulitis. At the conclusion of the procedure retroflexion was performed and small grade 1-2 internal hemorrhoids without stigmata of bleeding were seen. The scope was then withdrawn from the rectum the procedure was concluded. The patient tolerated the procedure well and was transferred to the PACU in stable condition. Scope withdrawal time: 6 Sedation minutes: 19 Findings: diverticulosis Specimen(s): none sent Complications: none Impression: Diverticulosis Post-procedure Recommendations: Colonscopy in 10 years (If healthy enough for colonoscopy at that time) Follow up: as needed Disposition: PACU
[2020-08-30] MEDS: DEXTROSE 50 % IN WATER 25 GM/50 ML SYRINGE IV (07:48)
--- NOTE | 2020-08-30 07:51 | SUR.PREOP ---
Blood sugar low, Dr Sigala made aware, D50 1/2 amp given per Jessica per Dr. Sigala. Medication given pt taken to Endo room in stable condition.
[2020-08-30] MEDS: fentaNYL 250 MCG/5 ML INJ IV (08:19)
[2020-08-30] MEDS: MIDAZOLAM 5 MG/5 ML VIAL IV (08:19)
[2020-08-30] MEDS: ONDANSETRON 4 MG/2 ML INJ IV (08:20)
[2020-08-30 08:21] VITALS: BP 108/62; PULSE 64; RESP 14; TEMP 36.1; O2SAT 93
[2020-08-30 08:25] VITALS: BP 110/62; PULSE 64; RESP 9; O2SAT 94
[2020-08-30 08:30] VITALS: BP 125/66; PULSE 70; RESP 10; O2SAT 97
[2020-08-30 08:35] VITALS: BP 123/57; PULSE 63; RESP 10; O2SAT 97
[2020-08-30 08:37] VITALS: BP 105/56; PULSE 67; RESP 11; TEMP 37.2; O2SAT 98
== END 2020-08-30 08:50 | disposition home or self-care (01) ==
PROVIDERS: PCP Nurse Practitioner; Referring Provider Surgery; Visit Provider Surgery
PROC: 0DJD8ZZ Inspection of Lower Intestinal Tract, Via Natural or Artificial Opening Endoscopic (ICD-10-PCS; CPT 45378; principal; 2020-08-30 07:45)
DX: Z12.11 Encounter for screening for malignant neoplasm of colon (principal); I10 Essential (primary) hypertension; R73.03 Prediabetes; I48.91 Unspecified atrial fibrillation; Z95.0 Presence of cardiac pacemaker; J45.909 Unspecified asthma, uncomplicated; G47.30 Sleep apnea, unspecified; K59.09 Other constipation; K57.30 Diverticulosis of large intestine without perforation or abscess without bleeding; K64.0 First degree hemorrhoids
CPT/HCPCS: G0121; 99152; J2250; J2405; J3010

== ENCOUNTER → 2020-10-22 07:10 | Outpatient (CLI) | payer MEDICARE, OTHER, SELFPAY ==
[2020-10-22 07:56] LABS: Glucose 113 mg/dL (80-110)
== END ==
PROVIDERS: PCP Nurse Practitioner; Referring Provider Nurse Practitioner; Visit Provider Nurse Practitioner
DX: R73.03 Prediabetes (principal)
CPT/HCPCS: 36415; 82947; 83036

== ENCOUNTER → 2021-05-10 08:26 | Outpatient (CLI) | payer MEDICARE, OTHER, SELFPAY ==
--- NOTE | 2021-05-10 | DI.MG.S_ITS ---
BILATERAL DIGITAL SCREENING MAMMOGRAM 3D/2D WITH CAD: 05/10/2021 CLINICAL: Routine screening. Family history of breast cancer. Comparison is made to exams dated: 05/01/2020 mammogram, 08/18/2019 mammogram, and 05/30/2019 mammogram - [facility]. The tissue of both breasts is predominantly fatty. Current study was also evaluated with a Computer Aided Detection (CAD) system. There are benign vascular calcifications in both breasts. No significant masses, calcifications, or other findings are seen in either breast. There has been no significant interval change. IMPRESSION: BENIGN There is no mammographic evidence of malignancy. A 1 year screening mammogram is recommended. This exam was interpreted at Station ID: [id number]. NOTE: For mammograms, a report in lay terms will be sent to the patient. Approximately 15% of breast malignancies will not be visualized mammographically. In the management of a palpable breast mass, a negative mammogram must not discourage biopsy of a clinically suspicious lesion. Electronically Signed By: Cindy boyle/carmelina:05/10/2021 12:00:54 letter sent: Normal Exam ACR BI-RADS Category 2: Benign Finding(s) 3342F
== END ==
PROVIDERS: PCP Nurse Practitioner; Referring Provider Nurse Practitioner; Visit Provider Nurse Practitioner
DX: Z12.31 Encounter for screening mammogram for malignant neoplasm of breast (principal); Z80.3 Family history of malignant neoplasm of breast
CPT/HCPCS: 77063; 77067

== ENCOUNTER → 2021-08-23 10:40 | Outpatient (CLI) | payer MEDICARE, OTHER, SELFPAY | PROVIDERS: PCP Nurse Practitioner; Visit Provider Registered Nurse | DX: M79.676 Pain in unspecified toe(s) (principal); L24.A9 Irritant contact dermatitis due friction or contact with other specified body fluids | CPT/HCPCS: 87070; 87205 ==

== ENCOUNTER → 2021-08-23 10:42 | Outpatient (CLI) | payer MEDICARE, OTHER, SELFPAY ==
--- NOTE | 2021-08-23 10:44 | DI.RAD.S_ITS ---
PROCEDURE: XR FOOT RT MIN 3V INDICATIONS: 4th toe pain TECHNIQUE: 3 views of the foot were acquired. COMPARISON: None. FINDINGS: Bones: No fractures or dislocations. No suspicious bony lesions. Calcaneal bone spurs. Soft tissues: No tibiotalar joint effusion. Achilles tendon appears normal. IMPRESSION: No fracture. No acute osseous lesion. If symptoms and/or clinical suspicion for pathology persists, further assessment with repeat radiographs (7-10 days) or advanced imaging (e.g. CT, MRI or bone scan) should be considered. Dictated by: Paola Horton MD, PhD on 08/23/2021 at 17:12 Approved by: Paola Horton MD, PhD on 08/23/2021 at 17:13
== END ==
PROVIDERS: PCP Nurse Practitioner; Referring Provider Registered Nurse; Visit Provider Registered Nurse
DX: M79.674 Pain in right toe(s) (principal); L24.A9 Irritant contact dermatitis due friction or contact with other specified body fluids
CPT/HCPCS: 73630; 87070; 87205

== ENCOUNTER 2021-09-11 12:04 | Emergency (ER) | payer MEDICARE, OTHER, SELFPAY ==
[2021-09-11 12:20] VITALS: PULSE 72; O2SAT 100
[2021-09-11 12:21] VITALS: BP 137/73; PULSE 70; O2SAT 100
[2021-09-11 12:27] VITALS: BP 137/73; PULSE 70; RESP 18; TEMP 36.8; O2SAT 99
[2021-09-11 12:30] VITALS: BP 119/65; PULSE 70; O2SAT 100
--- NOTE | 2021-09-11 12:49 | ED.BACK ---
HPI - Back Pain/Injury General Chief Complaint: Back Pain/Injury Stated Complaint: Lower back pain, left , nausea Time Seen by Provider: 09/11/21 12:27 Source: patient History of Present Illness HPI Narrative: Patient is a 71-year-old female with history of hypertension presenting with left-sided back pain. She says it started about 5 days ago when she was playing cards. It was not a vigorous card came. She denies any fall or injury. She says actually is okay in the morning but gets worse throughout the day. She is able to go on walks without any difficulty. She has no numbness tingling or weakness down her leg. No changes in bowel or bladder habits. She has had some nausea but no vomiting. She says she frequently gets nauseated when ever she has any sort of pain in her body. She has not tried any Tylenol or ibuprofen. To want to be sure nothing else was wrong. Denies any painful or frequent urination. Related Data Home Medications Medication Instructions Recorded Confirmed Fish Oil (#FISH OIL) 2,000 mg PO DAILY #0 02/01/12 08/27/21 coenzyme [id number] E 100 mg-100 1 cap PO DAILY cap 11/16/17 08/27/21 unit capsule cinnamon bark 500 mg capsule 1,200 mg PO DAILY 04/20/20 08/27/21 flaxseed oil 1,000 mg capsule 720 mg PO DAILY 04/20/20 08/27/21 brimonidine 0.2 % eye drops 1 drp EYE-BOTH BID ml 08/06/20 08/27/21 aspirin 81 mg tablet,delayed 81 mg PO DAILY 09/12/20 08/27/21 release calcium citrate 200 mg (950 mg) 400 mg PO BID tab 09/12/20 08/27/21 tablet ibuprofen 200 mg tablet 400 mg PO BID PRN tab 11/21/20 08/27/21 Previous Rx's Medication Instructions Recorded amlodipine 5 mg tablet 5 mg PO BID #180 tab 11/21/20 simvastatin 10 mg tablet See Rx Instructions .ROUTE 06/06/21 .COMPLEX #90 tab ciclopirox 0.77 % topical gel 1 applic TOPICAL BID 28 Days #30 g 08/23/21 Allergies Allergy/AdvReac Type Severity Reaction Status Date / Time adhesive tape [ADHESIVE TAPE] Allergy Mild Verified 08/27/21 11:54 hydrocodone [HYDROCODONE] Allergy Mild ITCHING Verified 08/27/21 11:54 irbesartan AdvReac Intermediate Cough Verified 08/27/21 11:54 lisinopril AdvReac Intermediate cough Verified 08/27/21 11:54 atenolol AdvReac MAKES Verified 08/27/21 11:54 HEART STOP Review of Systems Review of Systems Narrative: GENERAL: Denies chills,fever HEENT: Denies throat pain RESPIRATORY: Denies dyspnea, cough, wheezing CARDIOVASCULAR: Denies chest pain, palpitations GASTROINTESTINAL: Denies nausea, vomiting MUSCULOSKELETAL: See HPI SKIN: No rash, no laceration, no pruritus NEUROLOGIC: Denies weakness, dizziness, headache, numbness 8 point review of systems is negative except for those stated above and HPI 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 Asthma Atrial fibrillation (2010) Blood in urine Bowel habit changes Breast lump in female Cough due to ADRIANE inhibitor Eczema (1955) Elevated blood pressure reading without diagnosis of hypertension (11/09/13) Foot pain (2013) Fractures Hayfever Hematuria Herpes Herpes zoster with unspecified complication (11/16/12) Hyperlipidemia (11/09/13) Hypertension Impaired fasting glucose (12/21/13) Intercostal muscle strain Lesion of labia (02/01/15) Loss of hair (08/31/13) Obesity (BMI 30.0-34.9) Osteoarthritis (2001) Positive antinuclear antibody (04/17/14) Postmenopausal status (11/09/13) Prediabetes Presence of cardiac pacemaker (2010) Scoliosis (2007) SI (sacroiliac) joint dysfunction Skin cancer (2014) Tendonitis of elbow, right Toe pain Traumatic compression fracture of L1 lumbar vertebra Traumatic compression fracture of T12 thoracic vertebra Vertigo (~1989) Wound drainage Surgical History Anesthesia complication Bone spur of right foot (~09/2014) History of knee replacement (2004) History of knee replacement (2007) History of permanent cardiac pacemaker placement (2010) History of tonsillectomy (1951) Status post dilation and curettage (1970) Status post kyphoplasty (02/2008) Family History Brother Diabetes mellitus Cancer Prostate cancer Brother Age: 74 Overweight Prostate cancer Hypertension High cholesterol Father Multiple myeloma Heart disease Renal failure Grandfather Heart disease Heart attack Mother Diabetes mellitus Hypertension Stroke Grandmother Cancer Grandmother No problems noted. Grandfather Flu Family/Other Diabetes mellitus Social History household members: spouse Smoking Status: Never smoker Smoking Status: Never smoker alcohol intake frequency: holidays/special occasions only Substance Use Type: does not use Exam Initial Vital Signs Initial Vital Signs: Vital Signs Pulse Rate 72 09/11/21 12:20 Pulse Oximetry 100 09/11/21 12:20 GENERAL: Alert pleasant 71-year-old female no acute distress CARDIOVASCULAR: peripheral pulses in tact, cap refill <2 sec RESPIRATORY: No respiratory distress, speaks in full sentences without difficulty BACK: Mild left lumbar pain no vertebral tenderness no step-offs, no left hip pain with internal external rotation EXTREMITIES: Normal range of motion, no clubbing or edema. Neurovascularly intact NEUROLOGICAL: Cranial nerves II through XII grossly intact. Normal gait and speech. SKIN: Warm, dry, no petechiae, no rashes or lesions. Course Vital Signs Vital signs: Vital Signs - 8 hr 09/11/21 12:20 09/11/21 12:21 09/11/21 12:27 Temperature 98.2 F Pulse Rate 72 70 70 Respiratory Rate 18 Blood Pressure 137/73 137/73 Pulse Oximetry 100 100 99 09/11/21 12:30 Temperature Pulse Rate 70 Respiratory Rate Blood Pressure 119/65 Pulse Oximetry 100 MDM - Back Pain/Injury MDM Narrative Medical decision making narrative: At this time patient overall appears very well. She has no trauma no need for any imaging at this time. She has very mild pain it she is able to do all of her daily living activities. She has not yet tried Tylenol or ibuprofen from. I recommend this to begin with. She agrees and will return only if needed. Discharge Plan Departure Patient Disposition: Home Clinical Impression: Low back pain Instructions: DI for Back Strain or Sprain Activity Restrictions/Additional Instructions: *You have been diagnosed with low back pain *What to do: At this time recommend light stretching, very light activity you may continue to walk as long as it does not bother you. I would avoid strenuous activity and heavy lifting. Try heating pad. *Continue to take medications as directed Tylenol 1000 mg every 6 hours if needed from a moderate Motrin 600 mg every 6 hours if needed for [id number] *Follow up with your primary care provider in 2-3 days or call [phone] *Return to ER if you should have increasing pain, leg weakness, numbness, tingling changes in urination or any new, worsening or concerning symptoms Prescriptions: No Action Fish Oil (#FISH OIL) 2,000 mg PO DAILY Qty: 0 0RF simvastatin 10 mg tablet See Rx Instructions .ROUTE .COMPLEX Qty: 90 3RF Dose Instruction: TAKE ONE TABLET BY MOUTH NIGHTLY AT BEDTIME Rx Instructions: TAKE ONE TABLET BY MOUTH NIGHTLY AT BEDTIME coenzyme [id number] E 100-100 mg-unit capsule 1 cap PO DAILY 0RF ibuprofen 200 mg tablet 400 mg PO BID PRN (Reason: Pain (Scale Score 4-6)) 0RF Rx Instructions: Takes maybe about 1x a week. flaxseed oil 1,000 mg capsule 720 mg PO DAILY 0RF Rx Instructions: administer with a meal cinnamon bark 500 mg capsule 1,200 mg PO DAILY 0RF ciclopirox 0.77 % gel 1 applic topical BID 28 Days Qty: 30 1RF brimonidine 0.2 % drops 1 drp EYE-BOTH BID 0RF Label Comments: Dr. Rodrigo Espan[place] calcium citrate 200 mg (950 mg) tablet 400 mg PO BID 0RF aspirin 81 mg tablet,delayed release (DR/EC) 81 mg PO DAILY 0RF amlodipine 5 mg tablet 5 mg PO BID Qty: 180 3RF Rx Instructions: Take 1 tab daily for BP but repeat dose if BP >130/80 consistently Referrals: Porsche Nuñez ARNP [Primary Care Provider] -
== END 2021-09-11 12:59 | disposition home or self-care (01) ==
PROVIDERS: Emergency Provider Emergency Medicine; PCP Nurse Practitioner
DX: M54.50 Low back pain, unspecified (principal)
CPT/HCPCS: 99281

== ENCOUNTER → 2021-09-27 09:43 | Outpatient (CLI) | payer MEDICARE, OTHER, SELFPAY ==
[2021-09-27 11:58] LABS: Hemoglobin A1C% w Est Avg Glu 6.7 % (4.0-6.0)
[2021-09-27 12:04] LABS: Alanine Aminotransferase 20 IU/L (<35); Albumin 4.2 g/dL (3.5-5.0); Albumin Globulin Ratio 1.5 (1.0-2.8); Alkaline Phosphatase 61 U/L (38-126); Aspartate Aminotransferase 29 IU/L (14-36); BUN Creatinine Ratio 28.1 (6-22); Bilirubin Total 0.7 mg/dL (0.2-1.3); Blood Urea Nitrogen 18 mg/dL (7-17); Calcium 9.4 mg/dL (8.4-10.2); Carbon Dioxide 30 mmol/L (22-32); Chloride 103 mmol/L (98-107); Cholesterol 182 mg/dL (140-199); Estimated Glomerular Filt Rate > 60.0 mL/min (>60); Globulin 2.8 g/dL (1.7-4.1); Glucose 111 mg/dL (80-110); HDL Cholesterol 76 mg/dL (40-60); HEMOLYSIS < 15 (0-50); LDL Cholesterol Calculated 90 mg/dL (<100); Potassium 4.1 mmol/L (3.4-5.1); Sodium 139 mmol/L (137-145); Triglycerides 79 mg/dL (35-150)
[2021-09-27 12:23] LABS: Free T3, Triiodothyronine Free 3.43 pg/mL (2.77-5.27); Free T4, Direct Thyroxine 1.25 ng/dL (0.78-2.19)
[2021-09-27 16:01] LABS: Creatinine Urine Random 119.1 mg/dL
[2021-09-27 16:36] LABS: Microalbumi Creatinin Ratio Ur 287.1 ug/mg CR (<30); Microalbumin Urine Random 34.2 mg/dL (0-1.6)
== END ==
PROVIDERS: PCP Nurse Practitioner; Referring Provider Nurse Practitioner; Visit Provider Nurse Practitioner
DX: R73.03 Prediabetes (principal); I10 Essential (primary) hypertension; E78.5 Hyperlipidemia, unspecified; Z79.899 Other long term (current) drug therapy
CPT/HCPCS: 36415; 80053; 80061; 82043; 82570; 83036; 84439; 84443; 84481

== ENCOUNTER → 2021-10-29 14:56 | Outpatient (CLI) | payer MEDICARE, OTHER, SELFPAY ==
[2021-10-29 16:59] LABS: Appearance Urine UA CLEAR; Bilirubin Urine UA NEGATIVE (NEGATIVE); Color Urine UA YELLOW; Glucose Urine UA NEGATIVE (Negative); Ketones Urine UA 1+ (NEGATIVE); Leukocyte Esterase Urine UA NEGATIVE (NEGATIVE); Nitrite Urine UA NEGATIVE (Negative); Occult Blood Urine UA 3+ (Negative); Protein Urine UA TRACE (Negative); Urobilinogen Urine UA 0.2 E.U./dL (0.2)
[2021-10-29 17:03] LABS: Creatinine Urine Random 132.2 mg/dL
[2021-10-29 17:09] LABS: Microalbumin Urine Random 12.3 mg/dL (0-1.6)
[2021-10-29 17:12] LABS: RBC Urine 10-30/HPF (0-5/HPF); Squamous Epithelial Cell Urine 0-1 /HPF (0-5/HPF); WBC Urine 5-10/HPF (0-5/HPF)
[2021-10-29 17:13] LABS: Bacteria Urine Occasional (0-1); Culture Indicated Urine Specimen Cultured; Mucus Urine 2+ (Negative)
== END ==
PROVIDERS: PCP Nurse Practitioner; Referring Provider Nurse Practitioner; Visit Provider Nurse Practitioner
DX: E88.09 Other disorders of plasma-protein metabolism, not elsewhere classified (principal); Z87.448 Personal history of other diseases of urinary system
CPT/HCPCS: 81001; 82043; 82570; 87086

== ENCOUNTER → 2022-01-06 10:19 | Outpatient (CLI) | payer MEDICARE, OTHER, SELFPAY ==
[2022-01-06 11:35] LABS: Estimated Glomerular Filt Rate > 60 mL/min (>60)
[2022-01-06 11:36] LABS: Glucose 114 mg/dL (80-110); Hemoglobin A1C% w Est Avg Glu 6.7 % (4.0-6.0)
--- NOTE | 2022-01-06 11:49 | DI.CT.S_ITS ---
PROCEDURE: CT ABDOMEN PELVIS WO/W CON INDICATIONS: Other microscopic hematuria TECHNIQUE: Optional 5 mm thick noncontrast images acquired from the diaphragm to the symphysis pubis. After the administration of intravenous contrast, 5 mm thick images acquired from the diaphragm to the symphysis pubis after a 10-minute delay. 2 mm thick coronal and sagittal reformats were then performed of the kidneys and ureters. For radiation dose reduction, the following was used: automated exposure control, adjustment of mA and/or kV according to patient size. COMPARISON: [facility], CT, L-SPINE WITHOUT CONTRAST, 03/26/2008, 18:03. [facility], CR, L-SPINE 2-3 VIEWS, 03/26/2008, 16:43. FINDINGS: Image quality: Excellent. Lung bases: Lung bases are clear. Heart size is normal. Urinary system: Both kidneys are normal in size, without hydronephrosis or nephrolithiasis on pre-contrast images. No perinephric fat stranding. There is normal bilateral renal enhancement. Renal calyces appear normal in morphology when filled with contrast. Opacified portions of both ureters demonstrate normal caliber. Bladder wall thickness is normal. No calcified bladder stones. Other solid organs: Liver is normal in size and enhancement. Gallbladder is unremarkable . Biliary system is non dilated. Pancreas enhances normally. Spleen is normal in size and enhancement. No adrenal nodules. Peritoneum and bowel: Bowel loops demonstrate normal wall thickness and caliber. The appendix is thin walled and gas filled. There are scattered sigmoid diverticula. No evidence for diverticulitis. No free fluid or air. Nodes and vessels: There are multiple shotty retroperitoneal lymph nodes, 1 of which measures 9 mm in diameter (series 4/image 104). No mesenteric adenopathy. Aorta and inferior vena cava are normal in size. There are scattered atheromatous calcifications throughout the aorta and iliac arteries bilaterally. Abdominal wall: No ventral hernias. Pelvis: No pathologic free pelvic fluid. No inguinal hernias or adenopathy. Bones: No suspicious bony lesions. No vertebral body compression fractures. IMPRESSION: 1. No hydronephrosis, nephrolithiasis, hydroureter, or ureterolithiasis. No suspicious ureteral filling defects or abnormal enhancing lesions of the kidneys. No bladder calculi or bladder wall abnormalities. 2. No acute intra-abdominal findings. Normal appendix. Diverticulosis. No acute diverticulitis. 3. Enlarged retroperitoneal lymph node which is likely reactive in nature although neoplastic etiologies cannot be excluded. Dictated by: Kenyatta Bhardwaj M.D. on 01/06/2022 at 13:22 Approved by: Kenyatta Bhardwaj M.D. on 01/06/2022 at 13:34
== END ==
PROVIDERS: PCP Nurse Practitioner; Referring Provider Physician Assistant Medical; Visit Provider Physician Assistant Medical
DX: R59.0 Localized enlarged lymph nodes (principal); K57.90 Diverticulosis of intestine, part unspecified, without perforation or abscess without bleeding; E78.5 Hyperlipidemia, unspecified; R31.29 Other microscopic hematuria; I10 Essential (primary) hypertension; R73.03 Prediabetes
CPT/HCPCS: 36415; 74178; 82565; 82947; 83036

== ENCOUNTER → 2022-04-03 07:49 | Outpatient (CLI) | payer MEDICARE, OTHER, SELFPAY ==
[2022-04-03 09:31] LABS: Hemoglobin A1C% w Est Avg Glu 6.5 % (4.0-6.0)
[2022-04-03 09:45] LABS: Alanine Aminotransferase 18 IU/L (<35); Albumin 3.9 g/dL (3.5-5.0); Albumin Globulin Ratio 1.4 (1.0-2.8); Alkaline Phosphatase 73 U/L (38-126); Aspartate Aminotransferase 26 IU/L (14-36); BUN Creatinine Ratio 28.1 (6-22); Bilirubin Total 0.5 mg/dL (0.2-1.3); Blood Urea Nitrogen 18 mg/dL (7-17); Carbon Dioxide 29 mmol/L (22-32); Chloride 103 mmol/L (98-107); Cholesterol 149 mg/dL (140-199); Estimated Glomerular Filt Rate > 60 mL/min (>60); Globulin 2.7 g/dL (1.7-4.1); Glucose 127 mg/dL (80-110); HDL Cholesterol 60 mg/dL (40-60); HEMOLYSIS < 15 (0-50); LDL Cholesterol Calculated 79 mg/dL (<100); Potassium 4.1 mmol/L (3.4-5.1); Sodium 138 mmol/L (137-145); Total Protein 6.6 g/dL (6.3-8.2); Triglycerides 48 mg/dL (35-150)
[2022-04-03 10:04] LABS: Free T3, Triiodothyronine Free 4.06 pg/mL (2.77-5.27); Free T4, Direct Thyroxine 1.35 ng/dL (0.78-2.19)
[2022-04-03 10:18] LABS: Thyroid Stimulating Hormone 1.45 uIU/mL (0.47-4.68)
== END ==
PROVIDERS: PCP Nurse Practitioner; Referring Provider Nurse Practitioner; Visit Provider Nurse Practitioner
DX: R73.03 Prediabetes (principal); I10 Essential (primary) hypertension; E78.5 Hyperlipidemia, unspecified; I48.20 Chronic atrial fibrillation, unspecified; Z79.899 Other long term (current) drug therapy
CPT/HCPCS: 36415; 80053; 80061; 83036; 84439; 84443; 84481

== ENCOUNTER → 2022-05-13 08:10 | Outpatient (CLI) | payer MEDICARE, OTHER, SELFPAY ==
--- NOTE | 2022-05-13 08:15 | DI.US.S_ITS ---
LIMITED ULTRASOUND OF RIGHT BREAST: 05/13/2022 CLINICAL: Occasional right breast pain. Comparison is made to exams dated: 05/13/2022 mammogram, 05/10/2021 mammogram, and 05/01/2020 [facility]. Ultrasound of the right breast upper outer quadrant was performed. House scale images of the real-time examination were reviewed. No significant abnormalities were seen sonographically in the right breast. Specifically, no finding to explain the patient's pain. IMPRESSION: INCOMPLETE: NEEDS ADDITIONAL IMAGING EVALUATION Normal right breast targeted ultrasound. No explanation for focal pain. Return to annual screening mammography for the right breast. The left breast ultrasound is recommended for the palpable abnormality and 7-8:00. This could not be performed today, and will be ordered and scheduled at a later date. Findings and recommendations were conveyed to the patient at time of exam. This exam was interpreted at Station ID: [id number]. Electronically Signed By: Cindy boyle/:05/13/2022 11:17:25 letter sent: Additional Imaging Needed Ultrasound BI-RADS: 0 Indeterminate
--- NOTE | 2022-05-13 08:15 | DI.ECHO.S_ITS ---
[facility] +---------+ : : [address] : : : : [id number] : : : : Phone: [phone]+ Echocardiogram Report + + :Name: MARY RAMIREZ Study Date: 05/13/2022 Height: 67 in : :[facility] ReadingLocation: Weight: 180 lb : : Gender: Female BSA: 1.9 m2 : :: 1950 Age: 72 yrs BP: 127/77 mmHg: :Reason For Study: HYPERTENSION : :Ordering Physician: MARILYN, : :ABAD Performed By: Ingris Hilliard : :Referring: ABAD SANDERS : + + Interpretation Summary The ejection fraction is estimated to be 60-65%. Diastolic parameters suggest probable normal left ventricular diastolic function and normal filling pressures. The right ventricle is normal in size and function. There is mild to moderate tricuspid regurgitation. The right ventricular systolic pressure is estimated to be at least 26 mmHg based on an estimated right atrial pressure of 3 mm Hg. Procedure: A two-dimensional transthoracic echocardiogram with color flow and Doppler was performed. The study quality was technically adequate. There is no prior echocardiogram noted for this patient. The patient was in sinus rhythm with heart rates between 64-79 bpm during the exam. Left Ventricle: The left ventricle is normal in size and wall thickness. The ejection fraction is estimated to be 60-65%. Diastolic parameters suggest probable normal left ventricular diastolic function and normal filling pressures. Right Ventricle: The right ventricle is normal in size and function. There is a pacemaker lead in the right ventricle. Atria: The left atrial size is normal. Right atrial size is normal. There is a catheter/pacemaker lead seen in the right atrium. There is no Doppler evidence for an interatrial shunt. Mitral Valve: The mitral valve is normal in structure and function. There is trace mitral regurgitation. Aortic Valve: The aortic valve is trileaflet. The aortic valve opens well. There is no aortic valve stenosis. No aortic regurgitation is present. Tricuspid Valve: The tricuspid valve leaflets are thin and pliable. There is mild to moderate tricuspid regurgitation. The right ventricular systolic pressure is estimated to be at least 26 mmHg based on an estimated right atrial pressure of 3 mm Hg. Pulmonic Valve: The pulmonic valve leaflets are thin and pliable; valve motion is normal. There is trace pulmonic regurgitation. Great Vessels: The aortic root is normal size. The dimensions of the ascending aorta are normal. The IVC is of normal diameter and collapses greater than 50% with a sniff. This suggests a low right atrial pressure of 3 mm Hg. Pericardium/ Pleura There is no pericardial effusion. There is no pleural effusion. MMode/2D Measurements & Calculations LVIDd: 4.7 cm LVOT diam: 2.0 cm LVIDs: 3.3 cm Ao root diam: 3.0 cm FS: 28.5 % asc Aorta Diam: 3.2 cm IVSd: 0.81 cm Ao Arch Diam (Prox Trans): 2.7 cm LVPWd: 0.70 cm LV vernon. diameter/BSA (cm/m^2): 2.4 LV sys. diameter/BSA (cm/m^2): 1.7 LA A2 area: 15.1 cm2 RA long axis: 5.0 cm LA A4 area: 17.2 cm2 RA area: 16.7 cm2 LA length (vol): 5.2 cm RA vol: 47.1 ml LA vol: 42.6 ml RA : 24.4 ml/m2 LA vol index: 22.0 ml/m2 IVC diam: 1.5 cm RVD1 (basal): 3.6 cm RVD2 (mid): 2.6 cm TAPSE: 2.9 cm Doppler Measurements & Calculations Ao V2 max: 117.0 cm/sec LVOT Max Bereket: 95.0 cm/sec Ao V2 mean: 90.9 cm/sec LV V1 max P.6 mmHg Ao max P.5 mmHg LV V1 VTI: 21.3 cm Ao mean P.5 mmHg KARTIK(I,D): 2.2 cm2 Ao V2 VTI: 29.4 cm KARTIK(V,D): 2.4 cm2 sev ratio: 0.73 KARTIK indexed to BSA (cm^2/m^2): 1.1 MV E max bereket: 53.6 cm/sec TR max bereket: 239.4 cm/sec MV A max bereket: 73.2 cm/sec TR max P.9 mmHg MV E/A: 0.73 PA V2 max: 94.3 cm/sec Med Peak E' Bereket: 5.4 cm/sec PA V2 mean: 61.4 cm/sec E/E' med: 10.0 PA mean P.9 mmHg Lat Peak E' Bereket: 7.6 cm/sec PA pr(Accel): 43.0 mmHg E/E' lat: 7.0 E/e' average: 8.5 MV dec time: 0.22 sec SV(LVOT): 63.8 ml Reading Physician:11:13 AM
--- NOTE | 2022-05-13 08:15 | DI.MG.S_ITS ---
BILATERAL DIGITAL DIAGNOSTIC MAMMOGRAM 3D/2D: 05/13/2022 CLINICAL: Right breast pain and Left breast lump. Comparison is made to exams dated: 05/10/2021 mammogram, 05/01/2020 mammogram, 11/25/2019 mammogram, 08/18/2019 mammogram, and 05/30/2019 mammogram - [facility]. Both breasts are almost entirely fatty (category a/<25% glandular tissue). No significant masses, calcifications, or other findings are seen in either breast. Specifically, no finding to explain the patient's right breast pain or left breast palpable abnormality. IMPRESSION: INCOMPLETE: NEEDS ADDITIONAL IMAGING EVALUATION There is no abnormality seen in the right breast to correspond with the pain in the upper outer quadrant. There are no abnormalities seen in the left breast to correspond with the palpable abnormalities at 7 and 8 o'clock. Ultrasound is recommended for full evaluation of these areas. Right breast ultrasound was performed immediately following this exam. The left ultrasound was not ordered and will be scheduled and performed at a later date. Based on the Tyrer Cuzick model (a risk assessment model) the patient's lifetime risk is 3.1% and her 10 year risk is 2.3%. According to the ACR, ACS, and NCCN guidelines, an annual breast MRI exam along with mammogram is recommended if the patient's lifetime risk is 20% or greater. This exam was interpreted at Station ID: [id number]. NOTE: For mammograms, a report in lay terms will be sent to the patient. Approximately 15% of breast malignancies will not be visualized mammographically. In the management of a palpable breast mass, a negative mammogram must not discourage biopsy of a clinically suspicious lesion. Electronically Signed By: Cindy boyle/:05/13/2022 11:15:08 ACR BI-RADS Category 0: Incomplete 3340F
[2022-05-13 10:20] LABS: Creatinine Urine Random 49.6 mg/dL
[2022-05-13 10:21] LABS: Microalbumi Creatinin Ratio Ur 46.3 ug/mg CR (<30); Microalbumin Urine Random 2.3 mg/dL (0-1.6)
== END ==
PROVIDERS: PCP Nurse Practitioner; Referring Provider Nurse Practitioner; Visit Provider Nurse Practitioner
DX: N64.4 Mastodynia (principal); N63.24 Unspecified lump in the left breast, lower inner quadrant; I07.1 Rheumatic tricuspid insufficiency; I10 Essential (primary) hypertension; Z13.820 Encounter for screening for osteoporosis; Z78.0 Asymptomatic menopausal state; M85.852 Other specified disorders of bone density and structure, left thigh; E78.5 Hyperlipidemia, unspecified; R92.8 Other abnormal and inconclusive findings on diagnostic imaging of breast; I48.20 Chronic atrial fibrillation, unspecified; R73.03 Prediabetes; Z79.899 Other long term (current) drug therapy
CPT/HCPCS: 76642; 77066; 77080; 82043; 82570; 93306; G0279

== ENCOUNTER → 2022-06-05 13:05 | Outpatient (CLI) | payer MEDICARE, OTHER, SELFPAY ==
--- NOTE | 2022-06-05 13:07 | DI.US.S_ITS ---
LIMITED ULTRASOUND OF LEFT BREAST: 06/05/2022 CLINICAL: Palpable left breast lump. Comparison is made to exams dated: 05/13/2022 mammogram, 05/10/2021 mammogram, 05/13/2022 ultrasound, 05/01/2020 mammogram, and 08/18/[address] ultrasound - [facility]. Real-time ultrasound of the left breast 7-8 o'clock region was performed. House scale images of the real-time examination were reviewed. No significant abnormalities were seen sonographically in the left breast in the region of the palpable abnormality. IMPRESSION: NEGATIVE There is no sonographic evidence of malignancy. No mass in region of the palpable abnormality. Exam findings were conveyed to the patient. Patient is advised to monitor for significant change. Clinical follow-up as needed. A 1 year screening mammogram is recommended. This exam was interpreted at Station ID: [id number]. Electronically Signed By: Hiren Kahn M.D. [facility]/:06/05/2022 13:38:53 letter sent: Normal Exam Ultrasound BI-RADS: 1 Negative
== END ==
PROVIDERS: PCP Nurse Practitioner; Referring Provider Nurse Practitioner; Visit Provider Nurse Practitioner
DX: N63.20 Unspecified lump in the left breast, unspecified quadrant (principal)
CPT/HCPCS: 76642

== ENCOUNTER → 2022-10-21 09:33 | Outpatient (CLI) | payer MEDICARE, OTHER, SELFPAY ==
[2022-10-21 11:15] LABS: Alanine Aminotransferase 20 IU/L (<35); Albumin 4.1 g/dL (3.5-5.0); Albumin Globulin Ratio 1.5 (1.0-2.8); Alkaline Phosphatase 78 U/L (38-126); Aspartate Aminotransferase 26 IU/L (14-36); BUN Creatinine Ratio 28.6 (6-22); Bilirubin Total 0.6 mg/dL (0.2-1.3); Blood Urea Nitrogen 16 mg/dL (7-17); Calcium 9.5 mg/dL (8.4-10.2); Carbon Dioxide 31 mmol/L (22-32); Chloride 102 mmol/L (98-107); Estimated Glomerular Filt Rate > 60 mL/min (>60); Globulin 2.8 g/dL (1.7-4.1); Glucose 128 mg/dL (80-110); HEMOLYSIS < 15 (0-50); Potassium 4.4 mmol/L (3.4-5.1); Sodium 139 mmol/L (137-145); Total Protein 6.9 g/dL (6.3-8.2)
[2022-10-21 12:05] LABS: Hep C Virus Ab w/Reflex Quant NEGATIVE s/c (NEGATIVE)
[2022-10-22 07:36] LABS: x Labcorp Estim. Avg Glu (eAG) 151 mg/dL (.); x Labcorp Hemoglobin A1c 6.9 % (4.8-5.6)
== END ==
PROVIDERS: PCP Nurse Practitioner; Referring Provider Nurse Practitioner; Visit Provider Nurse Practitioner
DX: Z11.59 Encounter for screening for other viral diseases (principal); I10 Essential (primary) hypertension; I48.20 Chronic atrial fibrillation, unspecified; Z95.0 Presence of cardiac pacemaker; R73.03 Prediabetes
CPT/HCPCS: 36415; 80053; 83036; 86803

== ENCOUNTER → 2022-10-22 10:36 | Outpatient (CLI) | payer MEDICARE, OTHER, SELFPAY ==
[2022-10-23 12:36] LABS: Fecal Immunochemical Test Positive (Negative)
== END ==
PROVIDERS: PCP Nurse Practitioner; Referring Provider Nurse Practitioner; Visit Provider Nurse Practitioner
DX: Z12.11 Encounter for screening for malignant neoplasm of colon (principal)
CPT/HCPCS: 82274

== ENCOUNTER 2022-12-23 09:09 | Day surgery (SDC) | payer MEDICARE, OTHER, SELFPAY ==
[2022-12-23] MEDS: LACTATED RINGERS 1,000 ML 200 ML IV (09:30)
[2022-12-23 09:45] VITALS: BP 126/73; PULSE 75; RESP 18; TEMP 36.4; O2SAT 98; BMI 27.3
--- NOTE | 2022-12-23 10:48 | PM.HP.1 ---
History of Present Illness History of Present Illness Date Patient Seen: 12/23/22 Time Patient Seen: 10:48 Chief complaint: Colonoscopy Narrative: 72-year-old woman here for diagnostic colonoscopy for a positive fecal immunochemical test. No family history of intestinal malignancy. She would previously normal colonoscopy. Occasional blood when she wipes but no significant bloody discharge. No abdominal pain or unintentional weight loss. 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 Asthma At average risk for colon cancer Atrial fibrillation (2010) Blister (nonthermal), right great toe, initial encounter Blood in urine Bowel habit changes Breast lump in female Cough due to ADRIANE inhibitor Diabetes Eczema (1955) Elevated blood pressure reading without diagnosis of hypertension (11/09/13) Foot pain (2013) Fractures Hayfever Hematuria Herpes Herpes zoster with unspecified complication (11/16/12) Hyperlipidemia (11/09/13) Hypertension Impaired fasting glucose (12/21/13) Intercostal muscle strain Lesion of labia (02/01/15) Loss of hair (08/31/13) Microalbuminuria Non-insulin dependent diabetes mellitus Obesity (BMI 30.0-34.9) Onychomycosis Osteoarthritis (2001) Positive antinuclear antibody (04/17/14) Positive FIT (fecal immunochemical test) Postmenopausal status (11/09/13) Prediabetes Presence of cardiac pacemaker (2010) Scoliosis (2007) SI (sacroiliac) joint dysfunction Skin cancer (2014) Tendonitis of elbow, right Toe pain Traumatic compression fracture of L1 lumbar vertebra Traumatic compression fracture of T12 thoracic vertebra Vertigo (~1989) Wound drainage Surgical History Anesthesia complication Bone spur of right foot (~09/2014) History of knee replacement (2004) History of knee replacement (2007) History of permanent cardiac pacemaker placement (2010) History of tonsillectomy (1951) Status post dilation and curettage (1970) Status post kyphoplasty (02/2008) Family History Brother Diabetes mellitus Cancer Prostate cancer Brother Age: 75 Overweight Prostate cancer Hypertension High cholesterol Father Multiple myeloma Heart disease Renal failure Grandfather Heart disease Heart attack Mother Diabetes mellitus Hypertension Stroke Grandmother Cancer Grandmother No problems noted. Grandfather Flu Family/Other Diabetes mellitus Social History household members: spouse Smoking Status: Never smoker alcohol intake: current Meds Home Medications and Allergies Home Medications Medication Instructions Recorded Confirmed Type cinnamon 2,400 mg PO .QD #90 caps 10/14/21 12/23/22 Rx flaxseed oil 1,000 mg capsule 1,200 mg PO DAILY 10/14/21 12/23/22 History pro omega 2,000 mg PO .QD #90 caps 10/14/21 12/23/22 Rx qunol 100 mg PO .QD #90 caps 10/14/21 12/23/22 Rx wheat dextrin 3 gram/4 gram oral 8.4 g PO DAILY #248 grams 10/14/21 04/10/22 Rx powder (Benefiber Sugar Free (dextrin)) amlodipine 5 mg tablet See Rx Instructions .Route 03/06/22 12/23/22 Rx .COMPLEX #180 tabs simvastatin 10 mg tablet See Rx Instructions .Route 06/20/22 12/23/22 Rx .COMPLEX #90 tabs Glucometer #1 ea 10/28/22 10/28/22 Rx Glucose test strips #100 ea 10/28/22 10/28/22 Rx Lancer #1 ea 10/28/22 10/28/22 Rx Lancettes #100 ea 10/28/22 10/28/22 Rx metformin 500 mg tablet,extended 500 mg PO QPM #90 tabs 10/28/22 12/23/22 Rx release 24 hr sodium,potassium,mag sulfates 17.5 See Rx Instructions PO .COMPLEX 10/31/22 Rx gram-3.13 gram-1.6 gram oral soln #354 mL (Suprep Bowel Prep Kit) Allergies Allergy/AdvReac Type Severity Reaction Status Date / Time adhesive tape [ADHESIVE TAPE] Allergy Mild Verified 12/23/22 09:41 hydrocodone [HYDROCODONE] Allergy Mild ITCHING Verified 12/23/22 09:41 irbesartan AdvReac Intermediate Cough Verified 12/23/22 09:41 lisinopril AdvReac Intermediate cough Verified 12/23/22 09:41 atenolol AdvReac MAKES Verified 12/23/22 09:41 HEART STOP Exam Vital Signs (past 8 hours): - 12/23/22 09:45 Temperature 97.6 F Pulse Rate 75 Respiratory Rate 18 Blood Pressure 126/73 Pulse Oximetry 98 Oxygen Delivery Method Room Air Oxygen Delivery Method Room Air Narrative Exam Narrative: General adult woman alert oriented no acute distress Chest nonlabored respiration Extremities warm well perfused Assessment & Plan Assessment and plan (1) Positive FIT (fecal immunochemical test): Status: Acute Assessment & Plan narrative: 72-year-old woman here for diagnostic colonoscopy secondary to positive fecal immunochemical test. Technical details were discussed. Risks, benefits, alternatives explained. Risks including but not limited to myocardial infarction, aspiration, bleeding, pain, missed lesion, incomplete examination, need for further radiographic studies, colonic perforation, and need for major abdominal surgery were discussed. All questions were answered to their satisfaction, and they are in agreement with this plan.
--- NOTE | 2022-12-23 10:50 | PM.OP.COLON ---
Operative Date/Time/Diagnoses Date of procedure: 12/23/22 Time of procedure: 10:50 Pre-op diagnosis: Positive fecal immunochemical test Post-op diagnosis: same Procedure & Clinicians Study performed: Colonoscopy Same procedure as scheduled: Yes Indications: Positive fecal immunochemical test Surgeon: Quentin Alicea Procedure Notes Procedure in detail: The history and physical was performed/updated and the patient is ASA class is 2. The procedure was discussed in detail with the patient. Potential risks complications including infection, bleeding, missed diagnosis, perforation, need for surgery, and were explained. Their questions were answered and informed consent was obtained. Patient was brought to the procedure room and placed standard monitoring equipment. The patient's vital signs were monitored continuously throughout the entire procedure. Prior to starting time-out was performed. The patient was placed in the left lateral recumbent position. Procedural sedation was administered by anesthesia. Examination began with a thorough inspection of the perianal area there was no evidence of fissures, fistulae, external hemorrhoids or cutaneous malignancy. The colonoscopy scope was then placed into the anal canal and was advanced to the cecum, which was identified by the ileocecal valve, the appendiceal orifice and the confluence of the taenia. The scope was then slowly withdrawn examining colon thoroughly in all directions, irrigating it of any residual stool. Normal healthy colon. No masses or polyps. Mild diverticulosis within the sigmoid colon. Internal hemorrhoids on retroflexion within the rectum The patient tolerated the procedure well. They will be discharged once criteria are met. The prep was of good/excellent quality. The withdrawl time was 7 minutes. Specimen(s): none sent Impression: Normal colonoscopy. Post-procedure Recommendations: High fiber diet Plan for aftercare: No further colonoscopy is necessary Disposition: same day surgery
[2022-12-23 11:26] VITALS: BP 109/73; PULSE 69; RESP 16; TEMP 36.9; O2SAT 98
[2022-12-23 11:32] VITALS: BP 113/69; PULSE 82; RESP 17; TEMP 36.7; O2SAT 98
[2022-12-23 11:40] VITALS: BP 108/73; PULSE 67; RESP 16; TEMP 36.7; O2SAT 97
== END 2022-12-23 11:55 | disposition home or self-care (01) ==
PROVIDERS: Family Provider Nurse Practitioner; PCP Nurse Practitioner; Referring Provider Surgery; Visit Provider Surgery
PROC: 0DJD8ZZ Inspection of Lower Intestinal Tract, Via Natural or Artificial Opening Endoscopic (ICD-10-PCS; CPT 45378; principal; 2022-12-23 10:15)
DX: Z12.11 Encounter for screening for malignant neoplasm of colon; R19.5 Other fecal abnormalities; K57.30 Diverticulosis of large intestine without perforation or abscess without bleeding; K64.8 Other hemorrhoids; E11.9 Type 2 diabetes mellitus without complications; E78.5 Hyperlipidemia, unspecified; I10 Essential (primary) hypertension; Z79.84 Long term (current) use of oral hypoglycemic drugs
CPT/HCPCS: 45378; G0121; J2250; J2704; J3010

== ENCOUNTER → 2023-03-04 09:35 | Outpatient (CLI) | payer MEDICARE, OTHER, SELFPAY ==
[2023-03-04 11:13] LABS: Hemoglobin A1C% w Est Avg Glu 5.9 % (4.0-6.0)
[2023-03-04 11:29] LABS: Alanine Aminotransferase 25 IU/L (<35); Albumin 4.3 g/dL (3.5-5.0); Albumin Globulin Ratio 1.5 (1.0-2.8); Alkaline Phosphatase 62 U/L (38-126); Aspartate Aminotransferase 35 IU/L (14-36); BUN Creatinine Ratio 29.6 (6-22); Bilirubin Total 0.7 mg/dL (0.2-1.3); Blood Urea Nitrogen 16 mg/dL (7-17); Calcium 9.4 mg/dL (8.4-10.2); Carbon Dioxide 28 mmol/L (22-32); Chloride 102 mmol/L (98-107); Cholesterol 178 mg/dL (140-199); Estimated Glomerular Filt Rate > 60 mL/min (>60); Globulin 2.8 g/dL (1.7-4.1); Glucose 106 mg/dL (80-110); HDL Cholesterol 68 mg/dL (40-60); HEMOLYSIS < 15 (0-50); LDL Cholesterol Calculated 96 mg/dL (<100); Potassium 4.2 mmol/L (3.4-5.1); Sodium 137 mmol/L (137-145); Total Protein 7.1 g/dL (6.3-8.2); Triglycerides 70 mg/dL (35-150)
[2023-03-04 11:37] LABS: Free T3, Triiodothyronine Free 4.25 pg/mL (2.77-5.27); Free T4, Direct Thyroxine 1.36 ng/dL (0.78-2.19)
[2023-03-04 11:50] LABS: Creatinine Urine Random 84.5 mg/dL
[2023-03-04 11:50] LABS: Thyroid Stimulating Hormone 1.71 uIU/mL (0.47-4.68)
[2023-03-04 11:52] LABS: Microalbumi Creatinin Ratio Ur 69.8 ug/mg CR (<30); Microalbumin Urine Random 5.9 mg/dL (0-1.6)
== END ==
PROVIDERS: Family Provider Nurse Practitioner; PCP Nurse Practitioner; Referring Provider Nurse Practitioner; Visit Provider Nurse Practitioner
DX: E11.9 Type 2 diabetes mellitus without complications (principal); E78.5 Hyperlipidemia, unspecified; I10 Essential (primary) hypertension; I48.91 Unspecified atrial fibrillation; R80.9 Proteinuria, unspecified
CPT/HCPCS: 36415; 80053; 80061; 82043; 82570; 83036; 84439; 84443; 84481

== ENCOUNTER → 2023-05-14 09:17 | Outpatient (CLI) | payer MEDICARE, OTHER, SELFPAY ==
--- NOTE | 2023-05-14 | DI.MG.S_ITS ---
BILATERAL DIGITAL SCREENING MAMMOGRAM 3D/2D WITH CAD: 05/14/2023 CLINICAL: Routine screening. Family history of breast cancer. Comparison is made to exams dated: 05/13/2022 mammogram, 05/10/2021 mammogram, and 05/01/2020 mammogram - . There are scattered areas of fibroglandular density in both breasts (category b / 25%-50% glandular tissue). Current study was also evaluated with a Computer Aided Detection (CAD) system. No significant masses, calcifications, or other findings are seen in either breast. IMPRESSION: NEGATIVE There is no mammographic evidence of malignancy. A 1 year screening mammogram is recommended. Based on the Tyrer Cuzick model (a risk assessment model) the patient's lifetime risk is 4.3% and her 10 year risk is 3.5%. According to the ACR, ACS, and NCCN guidelines, an annual breast MRI exam along with mammogram is recommended if the patient's lifetime risk is 20% or greater. This exam was interpreted at Station ID: [id number]. NOTE: For mammograms, a report in lay terms will be sent to the patient. Approximately 15% of breast malignancies will not be visualized mammographically. In the management of a palpable breast mass, a negative mammogram must not discourage biopsy of a clinically suspicious lesion. Electronically Signed By: Aimee Benton M.D., PH.D stacie/carmelina:05/14/2023 19:39:58 letter sent: Normal Exam ACR BI-RADS Category 1: Negative [id number]
== END ==
PROVIDERS: Family Provider Nurse Practitioner; PCP Nurse Practitioner; Referring Provider Nurse Practitioner; Visit Provider Nurse Practitioner
DX: Z12.31 Encounter for screening mammogram for malignant neoplasm of breast (principal); Z80.3 Family history of malignant neoplasm of breast
CPT/HCPCS: 77063; 77067

== ENCOUNTER → 2023-05-27 08:23 | Outpatient (CLI) | payer MEDICARE, OTHER, SELFPAY ==
[2023-05-27 09:59] LABS: Hemoglobin A1C% w Est Avg Glu 6.1 % (4.0-6.0)
[2023-05-27 10:01] LABS: Alanine Aminotransferase 21 IU/L (<35); Albumin 4.2 g/dL (3.5-5.0); Albumin Globulin Ratio 1.4 (1.0-2.8); Alkaline Phosphatase 58 U/L (38-126); Aspartate Aminotransferase 31 IU/L (14-36); Bilirubin Total 0.7 mg/dL (0.2-1.3); Blood Urea Nitrogen 18 mg/dL (7-17); Calcium 10.2 mg/dL (8.4-10.2); Carbon Dioxide 30 mmol/L (22-32); Chloride 104 mmol/L (98-107); Estimated Glomerular Filt Rate > 60 mL/min (>60); Globulin 2.9 g/dL (1.7-4.1); Glucose 114 mg/dL (80-110); HEMOLYSIS < 15 (0-50); Potassium 4.4 mmol/L (3.4-5.1); Sodium 139 mmol/L (137-145); Total Protein 7.1 g/dL (6.3-8.2)
== END ==
PROVIDERS: Family Provider Nurse Practitioner; PCP Nurse Practitioner; Referring Provider Nurse Practitioner; Visit Provider Nurse Practitioner
DX: E11.9 Type 2 diabetes mellitus without complications (principal)
CPT/HCPCS: 36415; 80053; 83036

== ENCOUNTER → 2023-09-03 09:06 | Outpatient (CLI) | payer MEDICARE, OTHER, SELFPAY ==
[2023-09-03 09:51] LABS: Hemoglobin A1C% w Est Avg Glu 5.8 % (4.0-6.0)
[2023-09-03 10:16] LABS: Alanine Aminotransferase 20 IU/L (<35); Albumin Globulin Ratio 1.5 (1.0-2.8); Alkaline Phosphatase 66 U/L (38-126); Aspartate Aminotransferase 29 IU/L (14-36); Bilirubin Total 0.7 mg/dL (0.2-1.3); Blood Urea Nitrogen 18 mg/dL (7-17); Calcium 9.7 mg/dL (8.4-10.2); Carbon Dioxide 32 mmol/L (22-32); Chloride 107 mmol/L (98-107); Cholesterol 133 mg/dL (140-199); Estimated Glomerular Filt Rate > 60 mL/min (>60); Globulin 2.6 g/dL (1.7-4.1); Glucose 96 mg/dL (80-110); HDL Cholesterol 65 mg/dL (40-60); HEMOLYSIS < 15 (0-50); LDL Cholesterol Calculated 57 mg/dL (<100); Potassium 3.9 mmol/L (3.4-5.1); Sodium 139 mmol/L (137-145); Total Protein 6.6 g/dL (6.3-8.2); Triglycerides 54 mg/dL (35-150)
== END ==
PROVIDERS: Family Provider Nurse Practitioner; PCP Nurse Practitioner; Referring Provider Nurse Practitioner; Visit Provider Nurse Practitioner
DX: E11.69 Type 2 diabetes mellitus with other specified complication (principal); E78.5 Hyperlipidemia, unspecified; I10 Essential (primary) hypertension
CPT/HCPCS: 36415; 80053; 80061; 83036

== ENCOUNTER → 2024-02-23 07:51 | Outpatient (CLI) | payer MEDICARE, OTHER, SELFPAY ==
[2024-02-23 09:09] LABS: Alanine Aminotransferase 18 IU/L (<35); Albumin Globulin Ratio 1.7 (1.0-2.8); Alkaline Phosphatase 64 U/L (38-126); Aspartate Aminotransferase 30 IU/L (14-36); BUN Creatinine Ratio 33.9 (6-22); Bilirubin Total 0.7 mg/dL (0.2-1.3); Blood Urea Nitrogen 20 mg/dL (7-17); Calcium 9.5 mg/dL (8.4-10.2); Carbon Dioxide 28 mmol/L (22-32); Chloride 103 mmol/L (98-107); Cholesterol 134 mg/dL (140-199); Estimated Glomerular Filt Rate > 60 mL/min (>60); Globulin 2.4 g/dL (1.7-4.1); Glucose 98 mg/dL (80-110); HDL Cholesterol 74 mg/dL (40-60); HEMOLYSIS < 15 (0-50); LDL Cholesterol Calculated 50 mg/dL (<100); Potassium 4.1 mmol/L (3.4-5.1); Sodium 138 mmol/L (137-145); Total Protein 6.4 g/dL (6.3-8.2); Triglycerides 50 mg/dL (35-150)
[2024-02-23 09:25] LABS: Free T3, Triiodothyronine Free 2.98 pg/mL (2.77-5.27); Free T4, Direct Thyroxine 1.21 ng/dL (0.78-2.19)
[2024-02-23 09:38] LABS: Thyroid Stimulating Hormone 1.76 uIU/mL (0.47-4.68)
[2024-02-23 10:12] LABS: Hemoglobin A1C% w Est Avg Glu 5.6 % (4.0-6.0)
== END ==
PROVIDERS: Family Provider Nurse Practitioner; PCP Nurse Practitioner; Referring Provider Nurse Practitioner; Visit Provider Nurse Practitioner
DX: E11.69 Type 2 diabetes mellitus with other specified complication (principal); E78.5 Hyperlipidemia, unspecified; E11.9 Type 2 diabetes mellitus without complications; R80.9 Proteinuria, unspecified; I48.91 Unspecified atrial fibrillation; I10 Essential (primary) hypertension
CPT/HCPCS: 36415; 80053; 80061; 83036; 84439; 84443; 84481

== ENCOUNTER → 2024-02-24 12:40 | Outpatient (CLI) | payer MEDICARE, OTHER, SELFPAY ==
[2024-02-24 15:44] LABS: Microalbumin Urine Random 4.3 mg/dL (0-1.6)
[2024-02-24 15:54] LABS: Creatinine Urine Random 58.81 mg/dL
== END ==
PROVIDERS: Family Provider Nurse Practitioner; PCP Nurse Practitioner; Referring Provider Nurse Practitioner; Visit Provider Nurse Practitioner
DX: E11.69 Type 2 diabetes mellitus with other specified complication (principal); E78.5 Hyperlipidemia, unspecified; R80.9 Proteinuria, unspecified; I48.91 Unspecified atrial fibrillation; I10 Essential (primary) hypertension
CPT/HCPCS: 82043; 82570

== ENCOUNTER → 2024-05-16 07:41 | Outpatient (CLI) | payer MEDICARE, OTHER, SELFPAY ==
--- NOTE | 2024-05-16 | DI.MG.S_ITS ---
BILATERAL DIGITAL SCREENING MAMMOGRAM 3D/2D WITH CAD: 05/16/2024 CLINICAL: Routine screening. Family history of breast cancer. Comparison is made to exams dated: 05/14/2023 mammogram, 05/13/2022 mammogram, and 05/10/2021 mammogram - [facility]. There are scattered areas of fibroglandular density (category b / 25%-50% glandular tissue). Current study was also evaluated with a Computer Aided Detection (CAD) system. No significant masses, calcifications, or other findings are seen in either breast. There has been no significant interval change. IMPRESSION: NEGATIVE There is no mammographic evidence of malignancy. A 1 year screening mammogram is recommended. Based on the Tyrer Cuzick model (a risk assessment model) the patient's lifetime risk is 4.1% and her 10 year risk is 3.6%. According to the ACR, ACS, and NCCN guidelines, an annual breast MRI exam along with mammogram is recommended if the patient's lifetime risk is 20% or greater. This exam was interpreted at Station ID: [id number]. NOTE: For mammograms, a report in lay terms will be sent to the patient. Approximately 15% of breast malignancies will not be visualized mammographically. In the management of a palpable breast mass, a negative mammogram must not discourage biopsy of a clinically suspicious lesion. Electronically Signed By: Sarbjit barlow/carmelina:05/16/2024 08:26:18 letter sent: Normal Exam ACR BI-RADS Category 1: Negative
== END ==
PROVIDERS: Family Provider Nurse Practitioner
DX: Z12.31 Encounter for screening mammogram for malignant neoplasm of breast (principal); Z80.3 Family history of malignant neoplasm of breast
CPT/HCPCS: 77063; 77067